=== PATIENT | female | born 1935 | race Caucasian/White ===

== ENCOUNTER 2023-03-16 05:37 | Inpatient (IN) | payer MEDICARE, SELFPAY ==
[2023-03-16] VITALS (15 sets, daily range): BP systolic 159–195; BP diastolic 71–103; PULSE 58–96; RESP 16–28; TEMP 36.3–36.8; O2SAT 90–94; BMI 28.5
--- NOTE | 2023-03-16 05:40 | CT_ITS ---
The [address] [address] Patient Name: SRIRAM LEBLANC MRN: [id number] date: 1935 Sex: F Assigned Patient Location: ER Current Patient Location: ER Accession/Order Number: [id number] Exam Date: 03/16/2023 05:40 Report Date: 03/16/2023 06:26 At the request of: LENNY LUONG Procedure: CT stroke head/brain wo con EXAMINATION: CT stroke head/brain wo con HISTORY: altered mental status COMPARISON: CT head 01/02/2023 TECHNIQUE: Axial CT images were obtained without IV contrast. Dose reduction techniques were achieved by using automated exposure control and/or adjustment of mA and/or kV according to patient size and/or use of iterative reconstruction technique. 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 No edema, hemorrhage, mass, acute infarction, or inappropriate atrophy. CSF SPACES: No hydrocephalus, subarachnoid hemorrhage, or mass. Appropriate for age. SKULL: No fracture, mass, or other significant visible lesion. SINUSES: Opacification of multiple left mastoid air cells, unchanged. Paranasal sinuses are clear. ORBITS: No appreciable abnormality on the limited views. OTHER: Negative CT/CT stroke head/brain wo con IMPRESSION: 1. No intracranial hemorrhage or appreciable acute abnormality. 2. Stable chronic age-related changes. 3. Stable mucosal thickening versus fluid within mastoid air cells. Findings discussed with Dr. Luong via telephone at 6:25 AM. Electronically authenticated by: VINI PEREZ Date: 03/16/2023 06:26
--- NOTE | 2023-03-16 05:44 | ED.GENADUL1 ---
HPI - General Adult General Chief complaint: Neuro Symptoms/Deficit Stated complaint: ALTERED MENTAL STATUS Time Seen by Provider: 03/16/23 05:44 History of Present Illness HPI narrative: pt brought into the emergency department with the complaint of mental status changes. The patient's blood sugar was normal. EMS found the patient without any oxygen on. She is normally on 4 L nasal cannula. After they placed oxygen back on the patient she still remained confused and only oriented to self. Daughter states her last known well was yesterday at 8 PM. This morning she found her sitting down on a chair thinking that she was sitting on the commode. Patient is unable to provide a history and the daughter is a poor historian she is also not available at this time. EMS was not able to get a good history from the daughter. They deny any signs of trauma. Related Data Home Medications Medication Instructions Recorded Confirmed amlodipine 10 mg tablet 2.5 mg PO QDAY 03/16/23 03/16/23 calcium carbonate 600 mg calcium 600 mg PO DAILY 03/16/23 03/16/23 (1,500 mg) tablet (Calcium) cyanocobalamin (vitamin B-12) 1,000 mcg PO QAM 03/16/23 03/16/23 1,000 mcg tablet escitalopram oxalate 5 mg tablet 5 mg PO QDAY 03/16/23 03/16/23 ferrous sulfate 325 mg (65 mg 325 mg PO QDAY 03/16/23 03/16/23 iron) tablet (FeroSul) lisinopril 10 mg tablet 10 mg PO QDAY 03/16/23 03/16/23 metoprolol tartrate 25 mg tablet 25 mg PO Q12H 03/16/23 03/16/23 simvastatin 20 mg tablet 20 mg PO QPM 03/16/23 03/16/23 Allergies Allergy/AdvReac Type Severity Reaction Status Date / Time Sulfa (Sulfonamide Allergy Intermediate Confusion Verified 03/16/23 06:45 Antibiotics) Review of Systems ROS Status of ROS 10 or more systems reviewed and unremarkable except as noted in history and below [facility] Medical History (Updated 03/16/23 @ 21:45 by Kelsey Luong MD) Surgical History Family History Mother Family history of cancer Sister Family history of cancer Family history of hypertension Brother Family history of myocardial infarction Father Family history of cancer Social History Within the past year, how often did you have a drink containing alcohol: never Score interpretation: A score less than 3 is consistent with normal alcohol consumption. Smoking status: Former smoker Non-prescribed substance use: denies use Previous occupational history: Retired Highest level of school completed/degree received: 10th grade Little interest or pleasure in doing things: several days Feeling down, depressed, or hopeless: more than half the days Feel stressed/tense/nervous/anxious/difficulty sleeping: to some extent Life stressors: other Life stressor details: recent hip fracture Do you think of yourself as: straight/heterosexual Gender Identity: female Exam Narrative Exam Narrative: Nurses notes and vital signs reviewed and patient is hypoxic.93 percent on 4 L nasal cannula General: Elderly, frail, chronically ill and in no apparent distress. Skin: Warm, dry, mild pallor noted. No Rash Head: Normocephalic, atraumatic. Neck: Supple, non-tender. Eye: Pupils are equal, round and EOMI. No scleral icterus. Ears, Nose, Mouth, and Throat: TM clear, no posterior oropharynx erythema or nasal mucosal hypertrophy, uvula is mid-line Oral mucosa is dry Cardiovascular: Regular Rate and Rhythm without murmur, gallop or rub. Respiratory: No accessory muscle use or respiratory distress. Lungs Occasional rhonchi bilateral Chest Wall: no tenderness Back: No midline thoracic or lumbar vertebral tenderness. No CVA tenderness Musculoskeletal: normal ROM, no calf or popliteal tenderness, +1 Bilateral lower extremity edema/swelling GI: Abdomen is soft, non-distended. Normal bowel sounds. No masses appreciated. No tenderness to palpation. No rebound, guarding, or rigidity noted. Neurological: A&O x1. No cranial nerve dysfunction observed. Moves all extremities. follows commands Psychiatric: Cooperative Constitutional Vital Signs, click to edit/add: Last Vital Signs Temp 98.2 F 03/16/23 14:26 Pulse 58 L 03/16/23 14:26 Resp 16 03/16/23 14:26 BP 161/71 H 03/16/23 14:26 Pulse Ox 94 L 03/16/23 20:11 O2 Del Method Nasal Cannula 03/16/23 20:11 O2 Flow Rate 2 03/16/23 20:11 Course Vital Signs Vital signs: Vital Signs Pulse Rate 96 H 03/16/23 05:51 Respiratory Rate 22 03/16/23 05:51 Blood Pressure 161/103 H 03/16/23 05:51 Pulse Oximetry 93 L 03/16/23 05:51 Temperature 98.2 F 03/16/23 14:26 Pulse Rate 58 L 03/16/23 14:26 Respiratory Rate 16 03/16/23 14:26 Blood Pressure 161/71 H 03/16/23 14:26 Pulse Oximetry 94 L 03/16/23 20:11 Oxygen Delivery Method Nasal Cannula 03/16/23 20:11 Oxygen Delivery Flow Rate 2 03/16/23 20:11 Medical Decision Making MDM Narrative Medical decision making narrative: CT scan of the brain stroke protocol was done and is pending. Labs studies were ordered and a chest x-ray. Patient is being worked up for a CVA, and sepsis. At the time of this dictation all labs and radiologic studies are pending. Patient was given IV fluids, started on antibiotics. She was pancultured. Patient was discussed with Dr. urbina for admission. Medical Records Medical records reviewed: Yes I reviewed the patient's medical records Lab Data Lab results reviewed: Yes I reviewed the patient's lab results Labs: Lab Results 03/16/23 03/16/23 03/16/23 Range/Units 05:54 05:58 06:05 WBC 13.8 H (4.0-11.0) 10^3/uL RBC 5.08 (4.20-5.40) 10^6/uL Hgb 14.6 (12.0-16.0) g/dL Hct 45.4 (36.0-48.0) % MCV 89.4 (81.0-99.0) fL MCH 28.7 (26.7-34.0) pg MCHC 32.2 (29.9-35.2) g/dL RDW 14.2 (11.0-15.0) % Plt Count 260 (150-450) 10^3/uL MPV 9.4 L (9.5-13.5) fL Seg Neuts % (Manual) 78.0 Lymphocytes % (Manual) 15.0 L (20.5-60.0) % Monocytes % (Manual) 5.0 (1.7-12.0) % Eosinophils % (Manual) 2.0 (0.9-7.0) % Basophils % (Manual) 0.0 L (0.2-2.0) % Neutrophils # (Manual) 10.76 H (1.4-6.5) 10^3/uL Lymphocytes # (Manual) 2.07 (1.20-3.80) 10^3/uL Monocytes # (Manual) 0.69 (0.30-0.80) 10^3/uL Eosinophils # (Manual) 0.27 (0.00-0.70) 10^3/uL Basophils # (Manual) 0.00 (0.00-0.10) 10^3/uL Toxic Granulation 2+ PT 10.3 (9.0-11.6) sec INR 0.97 APTT 20.9 L (22.3-36.2) sec Puncture Site ABG pH (7.350-7.450) ABG pCO2 (35.0-45.0) mmHg ABG pO2 (80.0-100.0) mmHg ABG HCO3 (22.0-26.0) mmol/L ABG O2 Saturation % ABG Base Excess (-2.0-2.0) mmol/L Mike Test (POSITIVE) O2 Liters/Min Sodium 135 L (136-145) mmol/L Potassium 3.5 (3.5-5.1) mmol/L Chloride 100 (98-107) mmol/L Carbon Dioxide 26.7 (21.0-32.0) mmol/L Anion Gap 11.8 BUN 13.0 (7.0-18.0) mg/dL Creatinine 0.80 (0.55-1.02) mg/dL Est GFR ( Amer) >60 (>=60) Est GFR (Non-Af Amer) >60 (>=60) BUN/Creatinine Ratio 16.2 Glucose 163 H (74-106) mg/dL Lactate 3.1 H* (0.4-2.0) mmol/L Calcium 9.0 (8.5-10.1) mg/dL Total Bilirubin 0.9 (0.2-1.0) mg/dL AST 16 (15-37) U/L ALT 14 (14-59) U/L Alkaline Phosphatase 89 (46-116) U/L Ammonia 20 (11-32) umol/L Troponin I High Sens 14.8 (4.0-51.3) pg/mL NT-Pro-B Natriuret Pep 1107.0 (<=1800.0) pg/mL Total Protein 6.7 (6.4-8.2) g/dL Albumin 3.6 (3.4-5.0) g/dL Globulin 3.1 g/dL Albumin/Globulin Ratio 1.2 Urine Color Lt. yellow (YELLOW) Urine Clarity Sl cloudy (CLEAR) Urine pH 7.0 (5.0-9.0) Ur Specific [place] 1.015 (1.005-1.025) Urine Protein 100 A (NEG/TRACE) mg/dL Urine Glucose (UA) Negative (NEGATIVE) mg/dL Urine Ketones Negative (NEGATIVE) mg/dL Urine Occult Blood Small A (NEGATIVE) Urine Nitrite Negative (NEGATIVE) Urine Bilirubin Negative (NEGATIVE) Urine Urobilinogen 0.2 (0.2-1.0) EU/dL Ur Leukocyte Esterase Negative (NEGATIVE) Urine RBC 5-10 A (0-2) #/HPF Urine WBC 0-2 A (NONE SEEN) #/HPF Ur Squamous Epith Cells Rare (NONE/RARE) #/LPF Urine Crystals None seen (None Seen) #/HPF Urine Bacteria Moderate A (NONE SEEN) #/HPF Urine Casts None seen (NONE SEEN) #/LPF Urine Mucus None seen (NONE SEEN) Ur Culture Indicated? Yes Mark H. influenza (PCR) Not detected (NOT DETECTE) Urine Opiates Screen Negative (NEGATIVE) Ur Buprenorphine Scrn Negative (NEGATIVE) Ur Oxycodone Screen Negative (NEGATIVE) Urine Methadone Screen Negative (NEGATIVE) Ur Propoxyphene Screen Negative (NEGATIVE) Ur Barbiturates Screen Negative (NEGATIVE) U Tricyclic Antidepress Negative (NEGATIVE) Ur Phencyclidine Scrn Negative (NEGATIVE) Ur Amphetamines Screen Negative (NEGATIVE) U Methamphetamines Scrn Negative (NEGATIVE) U Benzodiazepines Scrn Negative (NEGATIVE) Urine Cocaine Screen Negative (NEGATIVE) U Cannabinoids Screen Negative (NEGATIVE) A.calcoaceticus-baumannii cmplx PCR Not detected (NOT DETECTE) Bacteroides fragilis Not detected (NOT DETECTE) Lucinda albicans (PCR) Not detected (NOT DETECTE) Lucinda auris (PCR) Not detected (NOT DETECTE) C. glabrata (PCR) Not detected (NOT DETECTE) C. krusei (PCR) Not detected (NOT DETECTE) C. parapsilosis (PCR) Not detected (NOT DETECTE) C. tropicalis (PCR) Not detected (NOT DETECTE) C. neoform/gattii (PCR) Not detected (NOT DETECTE) Enterobacterales (PCR) Not detected (NOT DETECTE) E. cloacae complex PCR Not detected (NOT DETECTE) Enterococc faecalis PCR Not detected (NOT DETECTE) Enterococc faecium PCR Not detected (NOT DETECTE) E. coli (PCR) Not detected (NOT DETECTE) Klebsiella aerogenes (PCR) Not detected (NOT DETECTE) Klebsiella oxytoca PCR Not detected (NOT DETECTE) K. pneumoniae group (PCR) Not detected (NOT DETECTE) List. monocytogenes PCR Not detected (NOT DETECTE) N. meningitidis (PCR) Not detected (NOT DETECTE) Proteus spp. (copies/mL) Not detected (NOT DETECTE) Salmonella spp. (PCR) Not detected (NOT DETECTE) Serratia marcescens PCR Not detected (NOT DETECTE) Staphylococcus sp PCR Not detected (NOT DETECTE) Staph aureus (PCR) Not detected (NOT DETECTE) mecA/C & MREJ Resist Gene Not applicable (NOT DETECTE) mecA/C-Methicil Resis Gene Not applicable (NOT DETECTE) mcr-1 Colistin Res Gene PCR Not applicable (NOT DETECTE) Staph epidermidis (PCR) Not detected (NOT DETECTE) Staph lugdunensis (TEM-PCR) Not detected (NOT DETECTE) S. maltophilia (PCR) Not detected (NOT DETECTE) Streptococcus sp PCR Not detected (NOT DETECTE) Strep agalactiae (PCR) Not detected (NOT DETECTE) Strep pneumoniae (PCR) Not detected (NOT DETECTE) S. pyogenes (PCR) Not detected (NOT DETECTE) P. aeruginosa (PCR) Not detected (NOT DETECTE) Tari/B-Vanco Res Genes Not applicable (NOT DETECTE) blaIMP Car res Gene PCR Not applicable (NOT DETECTE) KPC (blaKPC) Detect PCR Not applicable (NOT DETECTE) NDM (blaNDM) Detect PCR Not applicable (NOT DETECTE) OXA-48 Carbapenem Resis Gene (PCR) Not applicable (NOT DETECTE) blaVIM Car Res Gene PCR Not applicable (NOT DETECTE) CTX-M ESBL (PCR) Not applicable (NOT DETECTE) 03/16/23 Range/Units 06:40 WBC (4.0-11.0) 10^3/uL RBC (4.20-5.40) 10^6/uL Hgb (12.0-16.0) g/dL Hct (36.0-48.0) % MCV (81.0-99.0) fL MCH (26.7-34.0) pg MCHC (29.9-35.2) g/dL RDW (11.0-15.0) % Plt Count (150-450) 10^3/uL MPV (9.5-13.5) fL Seg Neuts % (Manual) Lymphocytes % (Manual) (20.5-60.0) % Monocytes % (Manual) (1.7-12.0) % Eosinophils % (Manual) (0.9-7.0) % Basophils % (Manual) (0.2-2.0) % Neutrophils # (Manual) (1.4-6.5) 10^3/uL Lymphocytes # (Manual) (1.20-3.80) 10^3/uL Monocytes # (Manual) (0.30-0.80) 10^3/uL Eosinophils # (Manual) (0.00-0.70) 10^3/uL Basophils # (Manual) (0.00-0.10) 10^3/uL Toxic Granulation PT (9.0-11.6) sec INR APTT (22.3-36.2) sec Puncture Site Rr ABG pH 7.420 (7.350-7.450) ABG pCO2 43.9 (35.0-45.0) mmHg ABG pO2 44.6 L (80.0-100.0) mmHg ABG HCO3 28.4 H (22.0-26.0) mmol/L ABG O2 Saturation 80.6 % ABG Base Excess 3.9 H (-2.0-2.0) mmol/L Mike Test Positive (POSITIVE) O2 Liters/Min 3 Sodium (136-145) mmol/L Potassium (3.5-5.1) mmol/L Chloride (98-107) mmol/L Carbon Dioxide (21.0-32.0) mmol/L Anion Gap BUN (7.0-18.0) mg/dL Creatinine (0.55-1.02) mg/dL Est GFR ( Amer) (>=60) Est GFR (Non-Af Amer) (>=60) BUN/Creatinine Ratio Glucose (74-106) mg/dL Lactate (0.4-2.0) mmol/L Calcium (8.5-10.1) mg/dL Total Bilirubin (0.2-1.0) mg/dL AST (15-37) U/L ALT (14-59) U/L Alkaline Phosphatase (46-116) U/L Ammonia (11-32) umol/L Troponin I High Sens (4.0-51.3) pg/mL NT-Pro-B Natriuret Pep (<=1800.0) pg/mL Total Protein (6.4-8.2) g/dL Albumin (3.4-5.0) g/dL Globulin g/dL Albumin/Globulin Ratio Urine Color (YELLOW) Urine Clarity (CLEAR) Urine pH (5.0-9.0) Ur Specific [place] (1.005-1.025) Urine Protein (NEG/TRACE) mg/dL Urine Glucose (UA) (NEGATIVE) mg/dL Urine Ketones (NEGATIVE) mg/dL Urine Occult Blood (NEGATIVE) Urine Nitrite (NEGATIVE) Urine Bilirubin (NEGATIVE) Urine Urobilinogen (0.2-1.0) EU/dL Ur Leukocyte Esterase (NEGATIVE) Urine RBC (0-2) #/HPF Urine WBC (NONE SEEN) #/HPF Ur Squamous Epith Cells (NONE/RARE) #/LPF Urine Crystals (None Seen) #/HPF Urine Bacteria (NONE SEEN) #/HPF Urine Casts (NONE SEEN) #/LPF Urine Mucus (NONE SEEN) Ur Culture Indicated? Mark H. influenza (PCR) (NOT DETECTE) Urine Opiates Screen (NEGATIVE) Ur Buprenorphine Scrn (NEGATIVE) Ur Oxycodone Screen (NEGATIVE) Urine Methadone Screen (NEGATIVE) Ur Propoxyphene Screen (NEGATIVE) Ur Barbiturates Screen (NEGATIVE) U Tricyclic Antidepress (NEGATIVE) Ur Phencyclidine Scrn (NEGATIVE) Ur Amphetamines Screen (NEGATIVE) U Methamphetamines Scrn (NEGATIVE) U Benzodiazepines Scrn (NEGATIVE) Urine Cocaine Screen (NEGATIVE) U Cannabinoids Screen (NEGATIVE) A.calcoaceticus-baumannii cmplx PCR (NOT DETECTE) Bacteroides fragilis (NOT DETECTE) Lucinda albicans (PCR) (NOT DETECTE) Lucinda auris (PCR) (NOT DETECTE) C. glabrata (PCR) (NOT DETECTE) C. krusei (PCR) (NOT DETECTE) C. parapsilosis (PCR) (NOT DETECTE) C. tropicalis (PCR) (NOT DETECTE) C. neoform/gattii (PCR) (NOT DETECTE) Enterobacterales (PCR) (NOT DETECTE) E. cloacae complex PCR (NOT DETECTE) Enterococc faecalis PCR (NOT DETECTE) Enterococc faecium PCR (NOT DETECTE) E. coli (PCR) (NOT DETECTE) Klebsiella aerogenes (PCR) (NOT DETECTE) Klebsiella oxytoca PCR (NOT DETECTE) K. pneumoniae group (PCR) (NOT DETECTE) List. monocytogenes PCR (NOT DETECTE) N. meningitidis (PCR) (NOT DETECTE) Proteus spp. (copies/mL) (NOT DETECTE) Salmonella spp. (PCR) (NOT DETECTE) Serratia marcescens PCR (NOT DETECTE) Staphylococcus sp PCR (NOT DETECTE) Staph aureus (PCR) (NOT DETECTE) mecA/C & MREJ Resist Gene (NOT DETECTE) mecA/C-Methicil Resis Gene (NOT DETECTE) mcr-1 Colistin Res Gene PCR (NOT DETECTE) Staph epidermidis (PCR) (NOT DETECTE) Staph lugdunensis (TEM-PCR) (NOT DETECTE) S. maltophilia (PCR) (NOT DETECTE) Streptococcus sp PCR (NOT DETECTE) Strep agalactiae (PCR) (NOT DETECTE) Strep pneumoniae (PCR) (NOT DETECTE) S. pyogenes (PCR) (NOT DETECTE) P. aeruginosa (PCR) (NOT DETECTE) Tari/B-Vanco Res Genes (NOT DETECTE) blaIMP Car res Gene PCR (NOT DETECTE) KPC (blaKPC) Detect PCR (NOT DETECTE) NDM (blaNDM) Detect PCR (NOT DETECTE) OXA-48 Carbapenem Resis Gene (PCR) (NOT DETECTE) blaVIM Car Res Gene PCR (NOT DETECTE) CTX-M ESBL (PCR) (NOT DETECTE) ECG Data Attestation: I personally reviewed and interpreted this ECG as follows: Discharge Plan Discharge Chief Complaint: Neuro Symptoms/Deficit Clinical Impression: Altered mental status, Sepsis, Pneumonia Patient Disposition: Admitted As Inpatient Condition: Good
--- NOTE | 2023-03-16 05:45 | ECG_ITS ---
The [facility] Test Date: 2023-03-16 Pat Name: SRIRAM LEBLANC Department: Room: - Gender: Female [employer] Food [employer]: : 1935 Requested By: [id number] Order Number: [id number] Reading MD: LALO PRICE Measurements Intervals [place] Rate: 82 P: 41 IN: 202 QRS: 66 QRSD: 82 T: 53 QT: 394 QTc: 433 Interpretive Statements 1100 Sinus rhythm 9110 normal ECG No previous ECG available for comparison Electronically Signed On 03-16-2023 7:21:37 EDT by LALO PRICE
--- NOTE | 2023-03-16 06:13 | XR_ITS ---
The [place] [id number] Patient Name: SRIRAM LEBLANC MRN: [id number] date: 1935 Sex: F Assigned Patient Location: ED.MAIN Current Patient Location: ED.MAIN Accession/Order Number: [id number] Exam Date: 03/16/2023 06:13 Report Date: 03/16/2023 07:19 At the request of: LENNY LAWSON Procedure: XR chest 1V EXAMINATION: XR chest 1V HISTORY: mental status changes COMPARISON: 01/02/2023 TECHNIQUE: AP portable erect FINDINGS: LUNGS: Mild left basilar infiltrate, improved VASCULATURE: Moderately increased pulmonary vasculature, stable PLEURA: No pneumothorax, effusion, or pleural thickening. CARDIAC: Mild stable cardiomegaly MEDIASTINUM: No visible mass or adenopathy. Aortic atherosclerosis BONES: No fracture or visible bone lesion. OTHER: Negative. XR/XR chest 1V IMPRESSION: Stable pulmonary vascular congestion Improved aeration of the left lung base mild left basilar infiltrate, improved Electronically authenticated by: NADINE WHITNEY Date: 03/16/2023 07:19
[2023-03-16 06:24] LABS: Hematocrit 45.4 % (36.0-48.0); Hemoglobin 14.6 g/dL (12.0-16.0); Mean Corpuscular HGB Conc 32.2 g/dL (29.9-35.2); Mean Corpuscular Hemoglobin 28.7 pg (26.7-34.0); Mean Corpuscular Volume 89.4 fL (81.0-99.0); Mean Platelet Volume 9.4 fL (9.5-13.5); Platelet Count 260 10^3/uL (150-450); Red Blood Count 5.08 10^6/uL (4.20-5.40); Red Cell Distribution Width 14.2 % (11.0-15.0); White Blood Count 13.8 10^3/uL (4.0-11.0)
[2023-03-16 06:41] LABS: INR 0.97; Partial Thromboplastin Time 20.9 sec (22.3-36.2); Prothrombin Time 10.3 sec (9.0-11.6)
[2023-03-16 06:42] LABS: Amphetamine Screen Urine NEGATIVE (NEGATIVE); Barbiturates Screen Urine NEGATIVE (NEGATIVE); Benzodiazepines Screen Urine NEGATIVE (NEGATIVE); Buprenorphine Screen Urine NEGATIVE (NEGATIVE); Cannabinoid Screen Urine NEGATIVE (NEGATIVE); Cocaine Screen Urine NEGATIVE (NEGATIVE); Methadone Screen Urine NEGATIVE (NEGATIVE); Methamphetamines Screen Urine NEGATIVE (NEGATIVE); Opiate Screen Urine NEGATIVE (NEGATIVE); Oxycodone Screen Urine NEGATIVE (NEGATIVE); Phencyclidine Screen Urine NEGATIVE (NEGATIVE); Tricyclic Antidepressant Urine NEGATIVE (NEGATIVE)
[2023-03-16 06:42] LABS: Ammonia 20 umol/L (11-32)
[2023-03-16 06:46] LABS: ABG PCO2 43.9 mmHg (35.0-45.0); Allen Test POSITIVE (POSITIVE); Base Excess ABG 3.9 mmol/L (-2.0-2.0); HCO3 ABG 28.4 mmol/L (22.0-26.0); Liters per Minute 3; O2 Mode NC; Oxygen Saturation ABG 80.6 %; PO2 ABG 44.6 mmHg (80.0-100.0); Puncture Site RR
[2023-03-16 06:49] LABS: Alanine Aminotransferase 14 U/L (14-59); Albumin Globulin Ratio 1.2; Albumin Level 3.6 g/dL (3.4-5.0); Alkaline Phosphatase 89 U/L (46-116); Anion Gap 11.8; Aspartate Amino Transferase 16 U/L (15-37); BUN Creatinine Ratio 16.2; Bilirubin Total 0.9 mg/dL (0.2-1.0); Carbon Dioxide 26.7 mmol/L (21.0-32.0); Chloride 100 mmol/L (98-107); Estimated GFR (African America >60 (>=60); Estimated GFR (Non-African Ame >60 (>=60); Globulin 3.1 g/dL; Glucose 163 mg/dL (74-106); Potassium 3.5 mmol/L (3.5-5.1); Sodium 135 mmol/L (136-145); Total Protein 6.7 g/dL (6.4-8.2); Troponin I High Sensitivity 14.8 pg/mL (4.0-51.3)
[2023-03-16 06:53] LABS: Lactate/Lactic Acid 3.1 mmol/L (0.4-2.0)
[2023-03-16 07:12] LABS: Bilirubin Urine NEGATIVE (NEGATIVE); Blood Urine SMALL (NEGATIVE); Clarity Urine SL CLOUDY (CLEAR); Color Urine LT. YELLOW (YELLOW); Glucose Urine UA NEGATIVE (NEGATIVE); Ketones Urine NEGATIVE (NEGATIVE); Leukocyte Esterase Urine NEGATIVE (NEGATIVE); Nitrite Urine NEGATIVE (NEGATIVE); Protein Urine 100 mg/dL (NEG/TRACE); Specific Gravity Urine 1.015 (1.005-1.025); Urobilinogen Urine 0.2 EU/dL (0.2-1.0)
[2023-03-16 07:15] LABS: Urine Microscopic Indicated YES
[2023-03-16 07:22] LABS: Bacteria Urine MODERATE #/HPF (NONE SEEN); Mucus Urine NONE SEEN (NONE SEEN); Squamous Epithelial Cell Urine RARE #/LPF (NONE/RARE); WBC Urine 0-2 #/HPF (NONE SEEN)
[2023-03-16 07:23] LABS: Cast Seen? NONE SEEN #/LPF (NONE SEEN); Crystals Seen? None Seen #/HPF (None Seen); Urine Culture Indicated YES
[2023-03-16] MEDS: 0.9 % SODIUM CHLORIDE 1,000 ML 999 ML IV (07:24)
[2023-03-16 07:42] LABS: Eosinophils Absolute Manual 0.27 10^3/uL (0.00-0.70); Lymphocytes Absolute Manual 2.07 10^3/uL (1.20-3.80); Monocytes Absolute Manual 0.69 10^3/uL (0.30-0.80); Segmented Neut Absolute Manual 10.76 10^3/uL (1.4-6.5)
[2023-03-16 07:43] LABS: Toxic Granulation 2+
[2023-03-16] MEDS: CEFTRIAXONE 1,000 MG in 0.9 % SODIUM CHLORIDE 50 ML 100 MG IV (07:46)
--- NOTE | 2023-03-16 10:14 | CA_ITS ---
Patient: SRIRAM LEBLANC Exam Date: 03/16/2023 : 1935 Gender:F Ordering : RamónMando PERKINS . Admission #: [id number] Family : Order #: [id number] CLICK HERE TO VIEW EXAM ECHOCARDIOGRAM REPORT PROCEDURE: CA ECHO DOPPLER COMPLETE INDICATIONS: SOB COMPARISON: None. DESCRIPTION: COMPLETE ECHOCARDIOGRAM Real-time transthoracic echocardiography with 2D, M-mode, spectral and color flow Doppler performed. QUALITY: Technical quality was good. LEFT VENTRICLE: Normal chamber size. Moderate concentric left ventricular hypertrophy. Global left ventricular systolic function is normal. LV EF: Calculated left ventricular ejection fraction is 66% DIASTOLIC: Grade I diastolic dysfunction. ATRIAL SEPTUM: LEFT ATRIUM: Mild dilatation. RIGHT ATRIUM: Mild dilatation. RIGHT VENTRICLE: Normal chamber size. Normal right ventricular systolic function. TRICUSPID VALVE: Normal mobility and thickness. No stenosis with mild regurgitation. Moderate pulmonary hypertension. RVSP 51 mmHg MITRAL VALVE: Normal mobility and thickness. No evidence of mitral valve stenosis. Mild mitral annular calcification. Mild to moderate mitral regurgitation. AORTIC VALVE: Normal trileaflet appearance. No visible sclerosis. Normal leaflet mobility. No evidence of aortic valve stenosis. No aortic regurgitation. AORTIC ROOT: Normal diameter and appearance. PULMONIC VALVE: Normal thickness and mobility. No stenosis. Trivial regurgitation. PERICARDIUM: No evidence of pericardial effusion. IVC: Collapses with inspirations. Normal size. PLEURA: CONCLUSION: 1. Moderate concentric left ventricular hypertrophy with normal systolic function. LVEF is 65 to 70%. 2. Mild diastolic dysfunction. 3. Normal right ventricular size and systolic function. 4. Mild biatrial dilatation. 5. Mild to moderate mitral and mild tricuspid regurgitation. 6. Moderately elevated right-sided pressures. RVSP is 51 mmHg. Adult Echocardiography Procedure Report Left Ventricle LVEDD (3.7 - 5.6 cm): 4.78 cm LVESD (2.2 - 4.0 cm): 3.02 cm LVIVS thickness (0.6 - 1.2 cm): 1.44 cm LVPW thickness (0.5 - 1.0 cm): 1.26 cm LVOT Max Gradient: 4 mm[Hg] Peak Velocity (LVOT): 98.20 cm/s Mean Velocity (LVOT): 60.90 cm/s LVOT Diameter 2.10 cm Left Ventricular Ejection Fraction: 66 % Left Atrium LA Volume Index (2D A2C): 77738 mm3 Left Atrium Systolic Dimension: 3.90 cm Mitral Valve MV E to A Ratio: 0.60 Mitral Valve A-Wave Peak Velocity: 128.00 cm/s Mitral Valve E-Wave Peak Velocity: 72.40 cm/s Right Ventricle Aorta AO Root Diam: 3.20 cm Aortic Valve AoV Area (Peak Maxi): 1.57 cm2 AoV Area (VTI): 1.65 cm2 Peak Velocity(Antegrade Flow): 216.00 cm/s Peak Gradient(Antegrade Flow): 19 mm[Hg] Mean Velocity(Antegrade Flow): 139.00 cm/s Mean Gradient(Antegrade Flow): 9 mm[Hg] Velocity Time Integral: 44.90 cm Tricuspid Valve Peak Velocity (Regurgitant Flow): 347.00 cm/s Peak Velocity: 45.80 cm/s Pulmonic Valve Peak Velocity: 103.00 cm/s, 89.20 cm/s Peak Gradient: 4 mm[Hg] Right Atrium Dictated by: Jarvis Cole M.D. on 03/16/2023 at 19:21 Approved by: Jarvis Cole M.D. on 03/16/2023 at 19:25
[2023-03-16 10:54] LABS: ABG PCO2 41.1 mmHg (35.0-45.0); PO2 ABG 62.1 mmHg (80.0-100.0); pH ABG 7.449 (7.350-7.450)
[2023-03-16 10:55] LABS: Allen Test POSITIVE (POSITIVE); Base Excess ABG 4.5 mmol/L (-2.0-2.0); HCO3 ABG 28.5 mmol/L (22.0-26.0); Liters per Minute 2; O2 Mode NASAL CANNULA; Oxygen Saturation ABG 92.8 %
[2023-03-16 10:56] LABS: Puncture Site LEFT RADIAL
[2023-03-16 11:15] LABS: Ammonia 24 umol/L (11-32)
[2023-03-16 11:22] LABS: Lactate/Lactic Acid 1.2 mmol/L (0.4-2.0)
--- NOTE | 2023-03-16 11:46 | MR_ITS ---
The [address] [address] Patient Name: SRIRAM LEBLANC MRN: [id number] date: 1935 Sex: F Assigned Patient Location: MS Current Patient Location: MS Accession/Order Number: [id number] Exam Date: 03/16/2023 13:00 Report Date: 03/16/2023 15:21 At the request of: SHAIKH MADDIE Procedure: MR head/brain wo con EXAM: MR head/brain wo con HISTORY: Altered mental status COMPARISON: CT brain 03/16/2023, 11/07/2022. TECHNIQUE: MRI of the brain was performed without contrast. FINDINGS: Exam is distorted secondary to severe motion artifact. Findings are made within these confines. There is no restricted diffusion to suggest acute infarct. There is no midline shift, mass effect, or abnormal extraaxial fluid collections. The cortical sulci and ventricular system are within normal limits for age. There are a few small chronic lacunar infarcts in bilateral basal ganglia. Multiple scattered foci of T2/FLAIR signal abnormality are identified in the subcortical and periventricular white matter. These findings are nonspecific but likely reflect chronic microvascular ischemic changes. The major intracranial flow voids are visualized. The cerebellar tonsils are normal in position. The orbits are unremarkable. The paranasal sinuses are essentially clear. There is partial opacification of left mastoid air cells, unchanged when compared to CT brain study from 11/07/2022, accounting for technique differences. MR/MR head/brain wo con IMPRESSION: Within the limitation of motion artifacts, no acute intracranial abnormality identified. Remote lacunar infarcts in bilateral basal ganglia. Chronic microvascular ischemic and mild involutional changes. Chronic partial opacification of left mastoid air cells, unchanged when compared to CT brain study from 11/07/2022, accounting for technique differences. Electronically authenticated by: MANUEL DUMONT Date: 03/16/2023 15:21
--- NOTE | 2023-03-16 12:04 | CM.NOTE ---
Rounds made with Dr. Kenny. Discussed plan of care--control BP, check MRI brain and CT chest-- with daughter and son--both verbalize understanding. No plan for discharge today.
--- NOTE | 2023-03-16 14:09 | CT_ITS ---
[address] [address] Patient Name: SRIRAM LEBLANC MRN: [id number] date: 1935 Sex: F Assigned Patient Location: [place] Current Patient Location: [place] Accession/Order Number: [id number] Exam Date: 03/16/2023 13:55 Report Date: 03/16/2023 14:48 At the request of: SHAIKH MADDIE Procedure: CT chest wo con EXAMINATION: CT chest wo con HISTORY: sob , left lung base infiltrate COMPARISON: XR chest 03/16/2023, CTA chest 11/07/2022 TECHNIQUE: Multi-planar CT images were obtained without and/or with IV contrast as indicated by examination type. Axial, Coronal, and Sagittal images. Dose reduction techniques were achieved by using automated exposure control and/or adjustment of mA and/or kV according to patient size and/or use of iterative reconstruction technique. FINDINGS: LUNGS: Mild atelectasis versus infiltrates within posterior left lung base. Scattered calcified granulomas. Mild emphysematous changes. PLEURA: Small left pleural effusion. VASCULATURE: No abnormality. KENDY: Calcified and noncalcified left hilar lymph nodes. MEDIASTINUM: No mass or adenopathy. CARDIAC: No enlargement, pericardial thickening, or significant calcification. AORTA: No aneurysm or dissection. CHEST WALL: No mass or axillary adenopathy. BONES: No bone lesion or fracture. LIMITED ABDOMEN: Small hiatal hernia. Limited images of the upper abdomen. OTHER: Negative. CT/CT chest wo con IMPRESSION: 1. Small left pleural effusion and mild left basilar atelectasis versus infiltrates. 2. Mild left hilar lymphadenopathy, likely some reactive lymph nodes and others represent chronic granulomatous changes. Electronically authenticated by: VINI PEREZ Date: 03/16/2023 14:48
[2023-03-16] MEDS: FUROSEMIDE 40 MG/4 ML VIAL IVP (14:18)
[2023-03-16] MEDS: ESCITALOPRAM 10 MG TABLET 5 MG PO (14:19)
[2023-03-16] MEDS: AMLODIPINE BESYLATE 5 MG TABLET 10 MG PO (14:19)
[2023-03-16] MEDS: METOPROLOL TARTRATE 25 MG TABLET PO ×2 (14:19→21:35)
[2023-03-16] MEDS: LISINOPRIL 10 MG TABLET 20 MG PO (14:20)
[2023-03-16 19:36] LABS: A. calcoaceticus-baumannii Cpx NOT DETECTED (NOT DETECTE); Bacteroides fragilis NOT DETECTED (NOT DETECTE); Candida albicans NOT DETECTED (NOT DETECTE); Candida auris NOT DETECTED (NOT DETECTE); Candida glabrata NOT DETECTED (NOT DETECTE); Candida krusei NOT DETECTED (NOT DETECTE); Candida parapsilosis NOT DETECTED (NOT DETECTE); Candida tropicalis NOT DETECTED (NOT DETECTE); Cryptococcus neoformans/gattii NOT DETECTED (NOT DETECTE); Enterobacter cloacae complex NOT DETECTED (NOT DETECTE); Enterobacterales NOT DETECTED (NOT DETECTE); Enterococcus faecalis NOT DETECTED (NOT DETECTE); Enterococcus faecium NOT DETECTED (NOT DETECTE); Haemophilus influenzae NOT DETECTED (NOT DETECTE); Klebsiella aerogenes NOT DETECTED (NOT DETECTE); Klebsiella pneumoniae group NOT DETECTED (NOT DETECTE); Listeria monocytogenes NOT DETECTED (NOT DETECTE); Neisseria meningitidis NOT DETECTED (NOT DETECTE); Proteus spp. NOT DETECTED (NOT DETECTE); Pseudomonas aeruginosa NOT DETECTED (NOT DETECTE); Salmonella spp. NOT DETECTED (NOT DETECTE); Serratia marcescens NOT DETECTED (NOT DETECTE); Staphylococcus epidermidis NOT DETECTED (NOT DETECTE); Staphylococcus lugdunensis NOT DETECTED (NOT DETECTE); Staphylococcus spp. NOT DETECTED (NOT DETECTE); Stenotrophomonas maltophilia NOT DETECTED (NOT DETECTE); Streptococcus agalactiae NOT DETECTED (NOT DETECTE); Streptococcus pneumoniae NOT DETECTED (NOT DETECTE); Streptococcus pyogenes NOT DETECTED (NOT DETECTE); Streptococcus spp. NOT DETECTED (NOT DETECTE)
--- NOTE | 2023-03-16 20:02 | P.HP_ITS ---
H&P: HPI History of Present Illness Chief complaint: Change in mental status Narrative: 87 y o female with dementia, currently living at home with her daughter was brought in for acute change in mental status last night. Hx was obtained from patient's daughter as patient herself was confused and did not participate in clinical exam and hx. Patient was in her usual state of health and had not indicated/reported any symptoms/signs prior. There is no report of fever, cough, sob, nausea,vomiting, poor appetite, urinary complaints, change in bowel habits. According to the daughter, she woke up and found patient with her pants down on a couch as if she had confused the couch with commode and had relieved herself on the couch. She got her up and tried to help her walk and found that she was extremely confused, could barely walk and her speech was incomprehensible. At baseline, patient can communicate but she is confused at baseline due to her dementia and sometimes her speech is not organized and relevant to the topic. She can ambulate using a walker and is dependent on her ADLs. She is also on O2 -2 L at baseline and had taken off her O2 and her pulse Ox was in 80s when ems arrived. Daughter is not sure how long she was sitting on the couch like that for and also, not sure about how long did she remain hypoxic. On arrival, patient was also noted to have extremely high blood pressure which according to the daughter is not usually an issue. I was unable to interact/communicate with the patient. She was awake but kept repeating Yes and was also not co operative with physical exam Review of Systems ROS Status of ROS unobtainable due to mental status [facility] Medical History (Updated 03/16/23 @ 20:29 by Shaikh Efraín MD) Surgical History Family History Mother Family history of cancer Sister Family history of cancer Family history of hypertension Brother Family history of myocardial infarction Father Family history of cancer Social History Within the past year, how often did you have a drink containing alcohol: never Score interpretation: A score less than 3 is consistent with normal alcohol consumption. Smoking status: Former smoker Non-prescribed substance use: denies use Previous occupational history: Retired Highest level of school completed/degree received: 10th grade Little interest or pleasure in doing things: several days Feeling down, depressed, or hopeless: more than half the days Feel stressed/tense/nervous/anxious/difficulty sleeping: to some extent Life stressors: other Life stressor details: recent hip fracture Do you think of yourself as: straight/heterosexual Gender Identity: female Meds Home Medications and Allergies Home Medications Medication Instructions Recorded Confirmed Type amlodipine 10 mg tablet 2.5 mg PO QDAY 03/16/23 03/16/23 History calcium carbonate 600 mg calcium 600 mg PO DAILY 03/16/23 03/16/23 History (1,500 mg) tablet (Calcium) cyanocobalamin (vitamin B-12) 1,000 mcg PO QAM 03/16/23 03/16/23 History 1,000 mcg tablet escitalopram oxalate 5 mg tablet 5 mg PO QDAY 03/16/23 03/16/23 History ferrous sulfate 325 mg (65 mg 325 mg PO QDAY 03/16/23 03/16/23 History iron) tablet (FeroSul) lisinopril 10 mg tablet 10 mg PO QDAY 03/16/23 03/16/23 History metoprolol tartrate 25 mg tablet 25 mg PO Q12H 03/16/23 03/16/23 History simvastatin 20 mg tablet 20 mg PO QPM 03/16/23 03/16/23 History Allergies Allergy/AdvReac Type Severity Reaction Status Date / Time Sulfa (Sulfonamide Allergy Intermediate Confusion Verified 03/16/23 06:45 Antibiotics) Exam Constitutional Vital Signs, click to edit/add: Last Vital Signs Temp 98.2 F 03/16/23 14:26 Pulse 58 L 03/16/23 14:26 Resp 16 03/16/23 14:26 BP 161/71 H 03/16/23 14:26 Pulse Ox 93 L 03/16/23 14:26 O2 Del Method Nasal Cannula 03/16/23 11:15 O2 Flow Rate 2 03/16/23 11:15 Documenting provider has reviewed patient's vital signs: yes Common normals: no apparent distress General appearance: frail appearing Orientation/consciousness: Yes confused HENMT Common normals: normocephalic and head/scalp atraumatic Eye Common normals: conjunctivae normal and no scleral icterus Respiratory Common normals: normal respiratory effort, no use of accessory muscles and clear to auscultation bilaterally GI Common normals: Normal to inspection, nondistended, normoactive bowel sounds present, soft to palpation, non-tender and no hepatosplenomegaly Extremity Common normals: normal to inspection and full ROM Neuro Lanie Coma Scale: document GCS findings [place] coma scale eye opening: Spontaneous [place] coma scale verbal response: Confused [place] coma scale mo tor response: Localising [place] coma scale total score: 13 Common normals: moves all extremities Sensorium/orientation: awake Speech: abnormal speech Psych Attitude: calm Speech: incoherent Thought process: confused Results Labs Labs: Short CBC 03/16/23 Range/Units 05:58 WBC 13.8 H (4.0-11.0) 10^3/uL Hgb 14.6 (12.0-16.0) g/dL Hct 45.4 (36.0-48.0) % Plt Count 260 (150-450) 10^3/uL BMP 03/16/23 05:58 Sodium 135 L Potassium 3.5 Chloride 100 Carbon Dioxide 26.7 BUN 13.0 Creatinine 0.80 Glucose 163 H Calcium 9.0 Liver Function 03/16/23 Range/Units 05:58 Total Bilirubin 0.9 (0.2-1.0) mg/dL AST 16 (15-37) U/L ALT 14 (14-59) U/L Alkaline Phosphatase 89 (46-116) U/L Albumin 3.6 (3.4-5.0) g/dL Urine 03/16/23 Range/Units 06:05 Urine Color Lt. yellow (YELLOW) Urine Clarity Sl cloudy (CLEAR) Urine pH 7.0 (5.0-9.0) Ur Specific [place] 1.015 (1.005-1.025) Urine Protein 100 A (NEG/TRACE) mg/dL Urine Glucose (UA) Negative (NEGATIVE) mg/dL ABG ABG results: 03/16/23 03/16/23 06:40 10:45 ABG pH 7.420 7.449 ABG pCO2 43.9 41.1 ABG pO2 44.6 L 62.1 L ABG HCO3 28.4 H 28.5 H ABG O2 Saturation 80.6 92.8 ABG Base Excess 3.9 H 4.5 H Assessment and Plan Assessment and Plan (1) Metabolic encephalopathy: Assessment and Plan: Multifactorial - UTI with prolonged hypoxia and possibly PNA. CT head no acute pathology. 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 Monitor and treat underlying cause as outline below. (2) Hypertensive emergency: Assessment and Plan: SBP > 190/DBP >100 Increased home dose of amlodipine, lisinopril. Hydralazine prn Monitor BP closely. No stroke on CTH and MRI. (3) Acute on chronic diastolic (congestive) heart failure: Assessment and Plan: Volume overload on CXR and CT chest. One dose of IV lasix. Likely exacerbated by poorly controlled HTN Monitor and closely f/u (4) Acute and chronic respiratory failure with hypoxia: Assessment and Plan: On 2 l O2. She was prescribed O2 after she developed pneumothorax from rib fx. On 2 L O2. Presented with hpyoxemia, and now on 4 L 02. Sec to volume overload and possibly PNA (5) UTI (urinary tract infection): Assessment and Plan: large bacteria in UA. On rocephin for presumed UTI F/u urine cx. (6) Sepsis: Assessment and Plan: WBC >13, HR > 90, rr> 20 with metabolic encephalopathy and resp failure along with lactic acidosis. Stable hemodynamics now. Still confused. (7) Pneumonia: Assessment and Plan: Bibasilar infiltrates vs Atelectasis on CT chest No report of cough/fever or resp symptoms but presented with worsening hpyoxia. Will treat for CAP - C/w IV rocephin. Qualifiers: Pneumonia type: due to unspecified organism Laterality: bilateral Lung location: lower lobe of lung Qualified Code(s): J18.9 - Pneumonia, unspecified organism (8) Lactic acidosis: Assessment and Plan: Due to hypoxia and sepsis (9) Dementia: Assessment and Plan: AAOX 2-3 at baseline. Likely vascular dementia and possibly Alzheimer Dependent on her daughter for ADLs. Qualifiers: Dementia type: vascular dementia Dementia severity: moderate Dementia behavioral or psychological symptom: with mood disturbance Qualified Code(s): F01.B3 - Vascular dementia, moderate, with mood disturbance (10) Depression: Assessment and Plan: On Lexapro C/w same (11) Hyperlipidemia: Assessment and Plan: C/w simvastatin (12) Hypertension: Assessment and Plan: P/w poorly controlled HTN. Better now with changes to her home regimen.
[2023-03-16] MEDS: ATORVASTATIN CALCIUM 10 MG TABLET PO (21:35)
[2023-03-16] MEDS: QUETIAPINE FUMARATE 25 MG TABLET PO (22:16)
[2023-03-17] VITALS (7 sets, daily range): BP systolic 117–139; BP diastolic 66–73; PULSE 61–79; RESP 16–20; TEMP 36.6–37.3; O2SAT 91–96
[2023-03-17 05:07] LABS: Basophils Percent Auto 0.3 % (0.2-2.0); Hematocrit 39.6 % (36.0-48.0); Hemoglobin 12.9 g/dL (12.0-16.0); Immature Granulocytes Abs Auto 0.04 10^3/uL (0.00-0.03); Immature Granulocytes Pct Auto 0.3 % (0.0-0.5); Lymphocytes Absolute Auto 3.2 10^3/uL (1.2-3.8); Lymphocytes Percent Auto 23.1 % (20.5-60.0); Mean Corpuscular HGB Conc 32.6 g/dL (29.9-35.2); Mean Corpuscular Hemoglobin 29.2 pg (26.7-34.0); Mean Corpuscular Volume 89.6 fL (81.0-99.0); Mean Platelet Volume 9.9 fL (9.5-13.5); Monocytes Absolute Auto 1.5 10^3/uL (0.3-0.8); Monocytes Percent Auto 10.6 % (1.7-12.0); Neutrophils Absolute Auto 9.1 10^3/uL (1.4-6.5); Neutrophils Percent Auto 65.7 % (43.0-75.0); Platelet Count 213 10^3/uL (150-450); Red Blood Count 4.42 10^6/uL (4.20-5.40); Red Cell Distribution Width 14.5 % (11.0-15.0); White Blood Count 13.8 10^3/uL (4.0-11.0)
[2023-03-17 05:32] LABS: Alanine Aminotransferase 11 U/L (14-59); Albumin Globulin Ratio 1.2; Alkaline Phosphatase 67 U/L (46-116); Anion Gap 11.1; Aspartate Amino Transferase 16 U/L (15-37); BUN Creatinine Ratio 18.2; Bilirubin Total 0.8 mg/dL (0.2-1.0); Calcium 8.2 mg/dL (8.5-10.1); Carbon Dioxide 28.9 mmol/L (21.0-32.0); Chloride 99 mmol/L (98-107); Estimated GFR (African America >60 (>=60); Estimated GFR (Non-African Ame >60 (>=60); Globulin 2.5 g/dL; Glucose 105 mg/dL (74-106); Sodium 136 mmol/L (136-145); Total Protein 5.5 g/dL (6.4-8.2)
[2023-03-17] MEDS: CEFTRIAXONE 1,000 MG in 0.9 % SODIUM CHLORIDE 50 ML 100 MG IV (09:02)
[2023-03-17] MEDS: 0.9 % SODIUM CHLORIDE 250 ML 25 ML IV (09:05)
[2023-03-17] MEDS: ESCITALOPRAM 10 MG TABLET 5 MG PO (09:20)
[2023-03-17] MEDS: METOPROLOL TARTRATE 25 MG TABLET PO ×2 (09:20→22:27)
[2023-03-17] MEDS: FERROUS SULFATE 325 MG TABLET PO (09:20)
[2023-03-17] MEDS: LISINOPRIL 10 MG TABLET 20 MG PO (09:20)
[2023-03-17] MEDS: AMLODIPINE BESYLATE 5 MG TABLET 10 MG PO (09:20)
[2023-03-17] MEDS: CALCIUM CARBONATE 600 MG TABLET PO (09:20)
--- NOTE | 2023-03-17 09:48 | CM.NOTE ---
Rounding with Dr. Kenny. Pt. family at bedside. Pt. lethargic. Nurse Marcela voices patient is on [address] Kenny states to family she looks a lot better than yesterday. Discussed recent MRI results with family and CT of chest results, urine positive for slight bacteria. Dr. Kenny states he feels she is at the baseline and discussed possible baseline. Patient lives with daughter, who is not present at this time. Nurse Medrano out in hallway...states pt. refused to work with PT today but bed exercises were completed. Nurse came in room, Dr. Kenny asked daughter Dana at bedside and nurse to assist patient up in bed to see how she moves around. Dr. Kenny requests PT to come and work with the patient again. Dr. Kenny spoke with PT on the phone to highly encourage the patient to get out of bed and participate with PT so he can get a better understanding of her functionality. Continue to follow after PT eval. regarding potential discharge needs.
[2023-03-17] MEDS: POTASSIUM CHLORIDE 40 MEQ in 0.9 % SODIUM CHLORIDE 250 ML 67.5 MEQ IV (10:04)
--- NOTE | 2023-03-17 11:20 | PM.IMPN1 ---
Progress Note: A&P Assessment and Plan (1) Metabolic encephalopathy: Assessment and Plan: Resolved. Back to her baseline. Likely sec to UTI/Pneumonia. MRI - no acute pathology. (2) Hypertensive emergency: Assessment and Plan: BP is improved. C/w current regimen. (3) Acute on chronic diastolic (congestive) heart failure: Assessment and Plan: likely due to poorly controlled BP. Received Lasix 40 mg once. Euvolemic now. Monitor. 2D ECHO shows normal LVEF, Mild diastolic dysfunction, mod MR, mild TR (4) Acute and chronic respiratory failure with hypoxia: Assessment and Plan: Back to baseline now. On 2 L O2. No resp distress. (5) UTI (urinary tract infection): Assessment and Plan: UA c/w UTI. F/u urine cx. (6) Sepsis: Assessment and Plan: Stable hemodynamics now. On IV rocephin (7) Pneumonia: Assessment and Plan: B/l infiltrate vs atelectasis on CT chest Being treated with IV rocpehin (8) Lactic acidosis: Assessment and Plan: due to hypoxia/sepsis (9) Dementia: Assessment and Plan: Moderate-severe dementia at baseline. Back to her baseline. Qualifiers: Dementia behavioral or psychological symptom: with mood disturbance Dementia severity: moderate Dementia type: vascular dementia Qualified Code(s): F01.B3 - Vascular dementia, moderate, with mood disturbance (10) Depression: Assessment and Plan: Cw/ home med (11) Hyperlipidemia: Assessment and Plan: C/w statin (12) Hypertension: Assessment and Plan: At goal now. C/w current regimen. (13) Generalized weakness: Assessment and Plan: Generalized weakness, limited functional capacity. PT/OT eval. PT/OT recommended SNF for her. Referral sent over today, Internal Medicine - PN: Subj Subjective Interval history: Seen and examined. No overnight events. Back to baseline O2. Seems to be at baseline mental status Was unco operative and did not let me examine her. Reports feeling cold and weak. Daughter at bedside also agreed that she is at baseline Exam Constitutional Vital Signs, click to edit/add: Last Vital Signs Temp 99.1 F 03/17/23 06:00 Pulse 70 03/17/23 06:00 Resp 16 03/17/23 06:00 BP 139/73 H 03/17/23 06:00 Pulse Ox 96 03/17/23 09:00 O2 Del Method Nasal Cannula 03/17/23 09:00 O2 Flow Rate 2 03/17/23 09:00 Documenting provider has reviewed patient's vital signs: yes Common normals: no apparent distress and average body habitus General appearance: frail appearing Orientation/consciousness: Yes oriented to person and Yes oriented to place HENMT Common normals: normocephalic and head/scalp atraumatic Eye Common normals: conjunctivae normal and no scleral icterus Respiratory Other: Patient did not let me examine resp system Cardio Other: Patient did not let me examine cvs system GI Other: Patient refused to let me examine GI system Extremity Common normals: normal to inspection Other: limited exam as patient refused and did not co operate Neuro [place] Coma Scale: document GCS findings [place] coma scale eye opening: Spontaneous [place] coma scale verbal response: Orientated [place] coma scale motor response: Obey commands [place] coma scale total score: 15 Common normals: moves all extremities Psych Common normals: mental status grossly normal Attitude: uncooperative Activity/motor behavior: avoids eye contact Speech: normal speech Internal Medicine - PN: Obj Da Labs Labs: Laboratory Results - last 24 hr 03/16/23 03/16/23 03/17/23 05:58 10:52 04:35 WBC 13.8 H RBC 4.42 Hgb 12.9 Hct 39.6 MCV 89.6 MCH 29.2 MCHC 32.6 RDW 14.5 Plt Count 213 MPV 9.9 Neut % (Auto) 65.7 Lymph % (Auto) 23.1 Graham % (Auto) 10.6 Eos % (Auto) 0.0 L Baso % (Auto) 0.3 Neut # (Auto) 9.1 H Lymph # (Auto) 3.2 Graham # (Auto) 1.5 H Eos # (Auto) 0.0 Baso # (Auto) 0.0 Abs Immat Gran (auto) 0.04 H Imm/Tot Granulo (auto) 0.3 Sodium 136 Potassium 3.0 L Chloride 99 Carbon Dioxide 28.9 Anion Gap 11.1 BUN 12.0 Creatinine 0.66 Est GFR ( Amer) >60 Est GFR (Non-Af Amer) >60 BUN/Creatinine Ratio 18.2 Glucose 105 Lactate 1.2 Calcium 8.2 L Total Bilirubin 0.8 AST 16 ALT 11 L Alkaline Phosphatase 67 Total Protein 5.5 L Albumin 3.0 L Globulin 2.5 Albumin/Globulin Ratio 1.2 Mark H. influenza (PCR) Not detected A.calcoaceticus-baumannii cmplx PCR Not detected Bacteroides fragilis Not detected Lucinda albicans (PCR) Not detected Lucinda auris (PCR) Not detected C. glabrata (PCR) Not detected C. krusei (PCR) Not detected C. parapsilosis (PCR) Not detected C. tropicalis (PCR) Not detected C. neoform/gattii (PCR) Not detected Enterobacterales (PCR) Not detected E. cloacae complex PCR Not detected Enterococc faecalis PCR Not detected Enterococc faecium PCR Not detected E. coli (PCR) Not detected Klebsiella aerogenes (PCR) Not detected Klebsiella oxytoca PCR Not detected K. pneumoniae group (PCR) Not detected List. monocytogenes PCR Not detected N. meningitidis (PCR) Not detected Proteus spp. (copies/mL) Not detected Salmonella spp. (PCR) Not detected Serratia marcescens PCR Not detected Staphylococcus sp PCR Not detected Staph aureus (PCR) Not detected mecA/C & MREJ Resist Gene Not applicable mecA/C-Methicil Resis Gene Not applicable mcr-1 Colistin Res Gene PCR Not applicable Staph epidermidis (PCR) Not detected Staph lugdunensis (TEM-PCR) Not detected S. maltophilia (PCR) Not detected Streptococcus sp PCR Not detected Strep agalactiae (PCR) Not detected Strep pneumoniae (PCR) Not detected S. pyogenes (PCR) Not detected P. aeruginosa (PCR) Not detected Tari/B-Vanco Res Genes Not applicable blaIMP Car res Gene PCR Not applicable KPC (blaKPC) Detect PCR Not applicable NDM (blaNDM) Detect PCR Not applicable OXA-48 Carbapenem Resis Gene (PCR) Not applicable blaVIM Car Res Gene PCR Not applicable CTX-M ESBL (PCR) Not applicable Urinary Catheter Management Urinary Catheter Management Urethral: Cath placed during this visit: no
--- NOTE | 2023-03-17 12:02 | CM.NOTE ---
PT and OT are recommending SNF. I spoke with Dr. Kenny and daughter Serena via phone. Serena is in agreement with this plan and gave 3 SNF choices after reviewing the CMS STAR ratings with her. Choice #1-[facility], #2-[facility], #3-[facility] in [place]. Pt. is confused at this time so unable to get accurate choices from her.
--- NOTE | 2023-03-17 13:31 | CM.NOTE ---
Spoke with Savannah regarding new referral, bed available at [facility]. Clinical all faxed over to [facility] for skilled therapy.
--- NOTE | 2023-03-17 15:39 | CM.NOTE ---
Savannah called from [place] and need more information that pt is participating in PT, discussed with nursing, pt, and family.
[2023-03-17] MEDS: ENOXAPARIN SODIUM 40 MG/0.4 ML SYRINGE SUBQ (16:13)
[2023-03-17] MEDS: ATORVASTATIN CALCIUM 10 MG TABLET PO (22:26)
[2023-03-17] MEDS: ACETAMINOPHEN 325 MG TABLET 650 MG PO (22:27)
[2023-03-18 04:36] LABS: Basophils Absolute Auto 0.1 10^3/uL (0.0-0.1); Basophils Percent Auto 0.6 % (0.2-2.0); Eosinophils Absolute Auto 0.1 10^3/uL (0.0-0.7); Eosinophils Percent Auto 0.9 % (0.9-7.0); Hematocrit 38.9 % (36.0-48.0); Hemoglobin 12.6 g/dL (12.0-16.0); Immature Granulocytes Abs Auto 0.03 10^3/uL (0.00-0.03); Immature Granulocytes Pct Auto 0.3 % (0.0-0.5); Lymphocytes Absolute Auto 3.1 10^3/uL (1.2-3.8); Lymphocytes Percent Auto 35.2 % (20.5-60.0); Mean Corpuscular HGB Conc 32.4 g/dL (29.9-35.2); Mean Corpuscular Hemoglobin 28.6 pg (26.7-34.0); Mean Corpuscular Volume 88.4 fL (81.0-99.0); Mean Platelet Volume 9.7 fL (9.5-13.5); Monocytes Absolute Auto 1.1 10^3/uL (0.3-0.8); Neutrophils Absolute Auto 4.5 10^3/uL (1.4-6.5); Platelet Count 205 10^3/uL (150-450); Red Cell Distribution Width 14.2 % (11.0-15.0); White Blood Count 8.7 10^3/uL (4.0-11.0)
[2023-03-18 05:04] LABS: Alanine Aminotransferase 11 U/L (14-59); Albumin Globulin Ratio 1.1; Albumin Level 2.7 g/dL (3.4-5.0); Alkaline Phosphatase 62 U/L (46-116); Anion Gap 8.4; Aspartate Amino Transferase 15 U/L (15-37); BUN Creatinine Ratio 21.9; Bilirubin Total 0.7 mg/dL (0.2-1.0); Calcium 8.3 mg/dL (8.5-10.1); Carbon Dioxide 30.7 mmol/L (21.0-32.0); Chloride 101 mmol/L (98-107); Estimated GFR (African America >60 (>=60); Estimated GFR (Non-African Ame >60 (>=60); Globulin 2.5 g/dL; Glucose 89 mg/dL (74-106); Potassium 3.1 mmol/L (3.5-5.1); Sodium 137 mmol/L (136-145); Total Protein 5.2 g/dL (6.4-8.2)
[2023-03-18 06:00] VITALS: BP 136/76; PULSE 61; RESP 18; TEMP 36.8; O2SAT 92
[2023-03-18 08:53] VITALS: O2SAT 92
--- NOTE | 2023-03-18 09:35 | REH.PTDLY ---
Physical Therapy Daily Note PT Daily Note/Assess Start: 03/18/23 09:30 Freq: Status: Active Protocol: Document 03/18/23 09:30 IVONE (Rec: 03/18/23 09:35 [email or web address] [id number]) Physical Therapy Daily Note/Assessment Time In 09:05 Time Out 09:20 Pain Level 0 Subjective No complaints this morning, pt wants to go home. Willing to participate in therapy today. Pt states she does not wear O2 at home, but nursing states she does. Therapeutic Exercise Minutes (minutes) 7 Therapeutic Exercise Units 1 Therapeutic Exercise Treatment Instructed in B LE seated exs 10x ea including AP, LAQ, marching, and hip abd step outs for improved strength. Cues to keep pt on task. Therapeutic Activity Minutes (minutes) 4 Therapeutic Activity Units 0 Bed Mobility Ability Modified Independent Chair Transfer Ability Contact Guard Assist Therapeutic Activity Comments Pt able to transfer supine to sit Supervised. Sit to stand transfers CGA. Gait training with RW 15 feet into restroom. OT does self care with pt. Ambulated to chair with RW 20 feet CGA. Cues when sitting back in chair to reach back with B UE rather than holding onto RW. Total Therapy Minutes 11 Total Physical Therapy Units 1 Daily Note Summary Much better cooperation today during rx, willing to participate in therapy. Pt does well with transfers. Pt fatigues with short distance ambulation.
[2023-03-18] MEDS: LISINOPRIL 10 MG TABLET 20 MG PO (09:41)
[2023-03-18] MEDS: CALCIUM CARBONATE 600 MG TABLET PO (09:41)
[2023-03-18] MEDS: METOPROLOL TARTRATE 25 MG TABLET PO (09:42)
[2023-03-18] MEDS: ESCITALOPRAM 10 MG TABLET 5 MG PO (09:42)
[2023-03-18] MEDS: FERROUS SULFATE 325 MG TABLET PO (09:42)
[2023-03-18] MEDS: AMLODIPINE BESYLATE 5 MG TABLET 10 MG PO (09:43)
[2023-03-18] MEDS: CEFTRIAXONE 1,000 MG in 0.9 % SODIUM CHLORIDE 50 ML 100 MG IV (09:45)
[2023-03-18] MEDS: POTASSIUM CHLORIDE 40 MEQ in 0.9 % SODIUM CHLORIDE 250 ML 67.5 MEQ IV (09:45)
--- NOTE | 2023-03-18 10:09 | CM.NOTE ---
Faxed updates to [facility] for PT and OT, spoke with pt's daughter Serena this AM regarding plan of care. Pt is stating I want to go back home. Pt continues to have some underlying confusion at times and daughter would like pt to get skilled rehab prior to returning to home. Serena is in [place] at doctors appt with her but will speak with pt when she returns.
--- NOTE | 2023-03-18 10:29 | PM.DS1 ---
DS: Providers Provider Date of admission: 03/16/23 07:36 Primary care physician: FELICIANO MUSTAFA Consults: 03/16/23 10:16 Occupational Therapy Eval and Treat Routine Physical Therapy Eval and Treat Routine Attending physician on discharge: Shaikh Efraín Discharging clinician: Shaikh Efraín Anticipated date of discharge: 03/18/23 DS: Diagnosis Discharge Diagnosis (1) Metabolic encephalopathy: Assessment and plan: Resolved. Back to baseline (2) Hypertensive emergency: Assessment and plan: BP at goal now. Increase home dose of Lisinopril to 20 mg daily and Amlodipine to 5 mg daily (3) Acute on chronic diastolic (congestive) heart failure: Assessment and plan: Euvolemic. Received one dose of Iv Lasix. likely exacerbated by uncontrolled HTN. (4) Acute and chronic respiratory failure with hypoxia: Assessment and plan: Back to baseline. No resp distress. (5) UTI (urinary tract infection): Assessment and plan: Will d/c home on Ceftin (6) Sepsis: Assessment and plan: Stable hemodynamics. Will d/c on oral abx (7) Pneumonia: Assessment and plan: B/l PNA. Back to baseline. No resp complaints. Will d/c on oral Ceftin (8) Lactic acidosis: (9) Dementia: Assessment and plan: Mod severe at baseline. Outpatient f/u Qualifiers: Dementia behavioral or psychological symptom: with mood disturbance Dementia severity: moderate Dementia type: vascular dementia Qualified Code(s): F01.B3 - Vascular dementia, moderate, with mood disturbance (10) Depression: Assessment and plan: Stable. C/w home meds (11) Hyperlipidemia: Assessment and plan: C/w statin (12) Hypertension: Assessment and plan: Home BP regimen adjusted. BP at goal now. (13) Generalized weakness: Assessment and plan: Improved and more or less at baseline. Accepted for SNF placement. DS: Summary Hospital Course Hospital Course: Patient admitted for acute change in mental status - sec to UTI, acute on chronic resp failure with hypoxia due to PNA and was treated with IV rocephin. She also received one dose of IV lasix for volume overload. She also presented with HTN emergency and since her mental status change was so acute - CTH and subsequently and MRI was ordered to r/o acute intracranial pathology. There was no evidence of CVA/Intra cranial bleeding or neoplasm noted on imaging. Blood cx positive for Gram positive bacilli - likely contaminant. Patient back to her baseline mental status, stable for d/c on oral Ceftin for UTI and Pneumonia. Status at Discharge Functional status at discharge: uses cane/walker Overall status at discharge: patient is back to baseline Time Spent with Patient Time attestation: Total time spent providing and/or coordinating discharge services: Time spent: greater than 30 minutes Exam Constitutional Vital Signs, click to edit/add: Last Vital Signs Temp 98.3 F 03/18/23 06:00 Pulse 61 03/18/23 06:00 Resp 18 03/18/23 06:00 BP 136/76 H 03/18/23 06:00 Pulse Ox 92 L 03/18/23 08:53 O2 Del Method Nasal Cannula 03/18/23 08:53 O2 Flow Rate 2 03/18/23 08:53 Documenting provider has reviewed patient's vital signs: yes Common normals: no apparent distress and oriented x3 Other: Sitting on chair, comfortable, eating food HENMT Common normals: normocephalic and head/scalp atraumatic Respiratory Common normals: normal respiratory effort, no use of accessory muscles and clear to auscultation bilaterally Effort & inspection: able to speak in complete sentences Cardio Common normals: no JVD, regular rate, regular rhythm, S1 normal heart sound and S2 normal heart sound GI Common normals: Normal to inspection, nondistended, normoactive bowel sounds present, soft to palpation, non-tender and no hepatosplenomegaly Neuro Common normals: oriented x3, moves all extremities and no focal motor deficits Psych Common normals: mental status grossly normal, denies hallucinations, denies homicidal ideation and denies suicidal ideation DS: Data Data Completed and Pending Labs on day of discharge: Labs from last 24 hours 03/18/23 03/18/23 04:20 04:00 WBC 8.7 RBC 4.40 Hgb 12.6 Hct 38.9 MCV 88.4 MCH 28.6 MCHC 32.4 RDW 14.2 Plt Count 205 MPV 9.7 Neut % (Auto) 51.0 Lymph % (Auto) 35.2 Jennings % (Auto) 12.0 Eos % (Auto) 0.9 Baso % (Auto) 0.6 Neut # (Auto) 4.5 Lymph # (Auto) 3.1 Jennings # (Auto) 1.1 H Eos # (Auto) 0.1 Baso # (Auto) 0.1 Abs Immat Gran (auto) 0.03 Imm/Tot Granulo (auto) 0.3 Sodium 137 Potassium 3.1 L Chloride 101 Carbon Dioxide 30.7 Anion Gap 8.4 BUN 14.0 Creatinine 0.64 Est GFR ( Amer) >60 Est GFR (Non-Af Amer) >60 BUN/Creatinine Ratio 21.9 Glucose 89 Calcium 8.3 L Total Bilirubin 0.7 AST 15 ALT 11 L Alkaline Phosphatase 62 Total Protein 5.2 L Albumin 2.7 L Globulin 2.5 Albumin/Globulin Ratio 1.1 Preliminary micro results at discharge 03/16/23 06:11 Blood Culture Result 1 - Preliminary Blood Discharge Plan Discharge Disposition: Xfer SNF Condition: Good Discharge Medications: New amlodipine 5 mg Tablet 5 mg PO QDAY Qty: 30 0RF lisinopril 10 mg Tablet 20 mg PO QDAY Qty: 60 0RF cefuroxime axetil 500 mg tablet 500 mg PO BID Qty: 10 0RF Continued cyanocobalamin (vitamin B-12) 1,000 mcg tablet 1,000 mcg PO QAM Rx Instructions: PER RETAIL FILL HX - LAST FILLED 01/22/23 #90 FOR A 90 DAY SUPPLY escitalopram oxalate 5 mg tablet 5 mg PO QDAY ferrous sulfate [FeroSul] 325 mg (65 mg iron) tablet 325 mg PO QDAY metoprolol tartrate 25 mg tablet 25 mg PO Q12H simvastatin 20 mg tablet 20 mg PO QPM Rx Instructions: PER RETAIL FILL HX - LAST FILLED 02/16/23 #90 FOR A 90 DAY SUPPLY calcium carbonate [Calcium 600] 600 mg calcium (1,500 mg) tablet 600 mg PO DAILY Discontinued amlodipine 10 mg tablet 2.5 mg PO QDAY Patient Comments: Hold if BP is less then 130/70 Rx Instructions: PER PT FILL HX - LAST FILLED 02/16/23 #90 FOR A 90 DAY SUPPLY TAKE 1 PO ONCE A DAY lisinopril 10 mg tablet 10 mg PO QDAY Forms: Portal Instructions Follow Up Appointments: PCP in one week
--- NOTE | 2023-03-18 10:46 | CM.NOTE ---
Evan from [facility] called and they can accept the pt today for skilled therapy, notified RN caring for pt, daughter, and pt. Everyone ok for pt to transfer to [facility] today. Dr. Kenny will put in discharge for pt. Skylar grand-daughter will call with transport time, she is going to transport pt to the [facility].
--- NOTE | 2023-03-18 11:19 | CM.NOTE ---
Discharge summary faxed to Evan at [facility]. Called Evan also, pt will be transported by grand-daughter @ 4:30.
--- NOTE | 2023-03-18 11:34 | CM.NOTE ---
HENS completed online for pt to transfer to skilled therapy.
[2023-03-18 14:00] VITALS: BP 116/69; PULSE 63; RESP 14; TEMP 36.8; O2SAT 94
== END 2023-03-18 16:31 | DRG 871 ==
LOC: ER 06:34 → MS 07:38
PROVIDERS: Admitting Provider Internal Medicine; Emergency Provider Emergency Medicine; PCP Family Medicine; Visit Provider Internal Medicine
DX: A41.9 Sepsis, unspecified organism (principal); G93.41 Metabolic encephalopathy; I50.33 Acute on chronic diastolic (congestive) heart failure; J18.9 Pneumonia, unspecified organism; J96.21 Acute and chronic respiratory failure with hypoxia; N39.0 Urinary tract infection, site not specified; I16.1 Hypertensive emergency; E87.20 Acidosis, unspecified; F01.B3 Vascular dementia, moderate, with mood disturbance; I11.0 Hypertensive heart disease with heart failure; Z99.81 Dependence on supplemental oxygen; F32.A Depression, unspecified; E78.5 Hyperlipidemia, unspecified; Z79.899 Other long term (current) drug therapy; Z87.891 Personal history of nicotine dependence; R53.1 Weakness; Z82.49 Family history of ischemic heart disease and other diseases of the circulatory system; Z80.9 Family history of malignant neoplasm, unspecified; Z88.2 Allergy status to sulfonamides
CPT/HCPCS: 36415; 36600; 70450; 70551; 71045; 71250; 80053; 80307; 81003; 81015; 82140; 82805; 83605; 83880; 84484; 85007; 85025; 85610; 85730; 87040; 87086; 87150; 87186; 93005; 93306; 94761; 96365; 96366; 96367; 96368; 96372; 96375; 97110; 97161; 97165; 97530; 97535; 99285; J3480

== ENCOUNTER 2025-07-27 14:31 | Emergency (ER) | payer MEDICARE, SELFPAY ==
[2025-07-27] VITALS (10 sets, daily range): BP systolic 176–208; BP diastolic 83–97; PULSE 65–66; TEMP 36.6; O2SAT 89–93
--- NOTE | 2025-07-27 14:50 | ECG_ITS ---
The [facility] Test Date: 2025-07-27 Pat Name: SRIRAM LEBLANC Department: Room: - Gender: Female [employer]: : 1935 Requested By: [id number] Order Number: [id number] Reading MD: JOHNATHAN TORRES M.D. Measurements Intervals [place] Rate: 63 P: 51 MN: 206 QRS: 50 QRSD: 80 T: 45 QT: 432 QTc: 440 Interpretive Statements 1100 Sinus rhythm 9110 normal ECG Compared to ECG 03/16/2023 05:54:29 No significant changes Electronically Signed On 07-27-2025 21:56:03 EST by JOHNATHAN TORRES M.D.
--- NOTE | 2025-07-27 14:51 | CT_ITS ---
The [address] [address] Patient Name: SRIRAM LEBLANC MRN: [id number] date: 1935 Sex: F Assigned Patient Location: ER Current Patient Location: ER Accession/Order Number: [id number] Exam Date: 07/27/2025 15:20 Report Date: 07/27/2025 15:46 At the request of: BRYANT PEREA MD Procedure: CT head/brain wo con CT BRAIN WITHOUT CONTRAST: CLINICAL HISTORY: fall COMPARISON: None TECHNIQUE: Contiguous axial unenhanced images were obtained through the brain. This CT exam was performed using one or more following dose reduction techniques: Automated exposure control, adjustment of the mA and/or kV according to patient size, or use of iterative reconstruction technique. FINDINGS: There is no evidence of midline shift, intra or extra-axial fluid collection, hemorrhage or CT evidence of of acute large vascular distribution stroke. Minimal central involutional changes and chronic small vessel ischemic disease. There are vascular calcifications identified. Visualized intraorbital contents appear unremarkable. Visualized paranasal sinuses are clear. The surrounding soft tissues are normal. CT/CT head/brain wo con IMPRESSION: NO ACUTE INTRACRANIAL ABNORMALITY. MINIMAL CHRONIC SMALL VESSEL CHANGES Impression dictated by: Brenden Castro M.D. 07/27/2025 3:46 PM Dictation Location: [place] [address] Electronically authenticated by: [id number] Y Date: 07/27/2025 15:46
--- NOTE | 2025-07-27 14:51 | CT_ITS ---
The [address] [address] Patient Name: SRIRAM LEBLANC MRN: [id number] date: 1935 Sex: F Assigned Patient Location: ER Current Patient Location: ER Accession/Order Number: [id number] Exam Date: 07/27/2025 15:20 Report Date: 07/27/2025 15:51 At the request of: BRYANT PEREA MD Procedure: CT cervical spine wo con CT CERVICAL SPINE WITHOUT CONTRAST WITH 3D RECONSTRUCTIONS: CLINICAL HISTORY: Fall, reported C1 and C2 fracture COMPARISON: X-ray cervical spine outside facility 07/27/2025 TECHNIQUE: Spiral axial unenhanced images were obtained through the cervical spine. Sagittal, coronal and 3D volume-rendered reconstructions were also reviewed. This CT exam was performed using one or more following dose reduction techniques: Automated exposure control, adjustment of the mA and/or kV according to patient size, or use of iterative reconstruction technique. FINDINGS: Nondisplaced fractures involving the C1 vertebral body of both lateral masses and involving the anterior arch. Subtle nondisplaced fracture base of the dens, type II 2 odontoid fracture. Prevertebral soft tissue swelling. No additional fracture or malalignment identified. Moderate severe disc space narrowing and osteophytosis C4-T1. Multilevel [id number]-cc-jcvtcacl facet arthropathy. There are vascular calcifications. Minimal left apical emphysematous changes. CT/CT cervical spine wo con IMPRESSION: Nondisplaced comparison fracture through C1 and nondisplaced type II odontoid fracture. Impression dictated by: Brenden Castro M.D. 07/27/2025 3:51 PM Dictation Location: [place] [address] Electronically authenticated by: [id number] Y Date: 07/27/2025 15:51
--- NOTE | 2025-07-27 14:52 | ED.GENADUL1 ---
HPI HPI - General Adult General Chief complaint: Fall Stated complaint: FALL Time Seen by Provider: 07/27/25 14:45 Source: patient Mode of arrival: Wheelchair History of Present Illness HPI narrative: 89-year-old female presents for abnormal x-ray. She had fallen 3 days ago and hit the right side of her head in her home while she was using her walker. She had outpatient x-rays which reportedly showed C1 and C2 fractures. She states her neck hurts if she moves it. No weakness or numbness. She does not take blood thinners. She came in by private auto. Related Data Home Medications ?Medication ?Instructions ?Recorded ?Confirmed calcium carbonate (Calcium 600) 600 mg PO DAILY 03/16/23 03/16/23 cyanocobalamin (vitamin B-12) 1,000 mcg PO QAM 03/16/23 03/16/23 1,000 mcg tablet escitalopram oxalate 5 mg tablet 5 mg PO QDAY 03/16/23 03/16/23 ferrous sulfate 325 mg (65 mg 325 mg PO QDAY 03/16/23 03/16/23 iron) tablet (FeroSul) metoprolol tartrate 25 mg tablet 25 mg PO Q12H 03/16/23 03/16/23 simvastatin 20 mg tablet 20 mg PO QPM 03/16/23 03/16/23 Previous Rx's ?Medication ?Instructions ?Recorded amlodipine 5 mg tablet 5 mg PO QDAY #30 tabs 03/18/23 cefuroxime axetil 500 mg tablet 500 mg PO BID #10 tabs 03/18/23 lisinopril 10 mg tablet 20 mg (2 x 10 mg) PO QDAY #60 tabs 03/18/23 Allergies Allergy/AdvReac Type Severity Reaction Status Date / Time Sulfa (Sulfonamide Allergy Intermediate Confusion Verified 03/16/23 06:45 Antibiotics) Opioid HPI Opioid Management Most Recent Opioid Data: Last Pain Intensity 0 03/18/23, 09:30 Ur Phencyclidine Scrn, (NEGATIVE) Negative 03/16/23, 06:05 Review of Systems ROS Narrative A ten point review of systems is negative except as noted above. [facility] Medical History (Updated 07/27/25 @ 17:19 by Juaquin Benavidez MD) Pneumonia ?J18.9 - Pneumonia, unspecified organism (ICD-10) Dementia ?F03.90 - Unspecified dementia, unspecified severity, without behavioral disturbance, psychotic disturbance, mood disturbance, and anxiety (ICD-10) UTI (urinary tract infection) ?N39.0 - Urinary tract infection, site not specified (ICD-10) Acute and chronic respiratory failure with hypoxia ?J96.21 - Acute and chronic respiratory failure with hypoxia (ICD-10) Acute on chronic diastolic (congestive) heart failure ?I50.33 - Acute on chronic diastolic (congestive) heart failure (ICD-10) COPD (chronic obstructive pulmonary disease) ?J44.9 - Chronic obstructive pulmonary disease, unspecified (ICD-10) Closed hip fracture requiring operative repair ?S72.009A - Fracture of unspecified part of neck of unspecified femur, initial encounter for closed fracture (ICD-10) Hip fracture ?S72.009A - Fracture of unspecified part of neck of unspecified femur, initial encounter for closed fracture (ICD-10) Anxiety ?F41.9 - Anxiety disorder, unspecified (ICD-10) Depression ?F32.A - Depression, unspecified (ICD-10) Hyperlipidemia ?E78.5 - Hyperlipidemia, unspecified (ICD-10) Hypertension ?I10 - Essential (primary) hypertension (ICD-10) Surgical History History of hip surgery ?Z98.890 - Other specified postprocedural states (ICD-10) Family History Mother Family history of cancer Sister Family history of cancer Family history of hypertension Brother Family history of myocardial infarction Father Family history of cancer Social History Within the past year, how often did you have a drink containing alcohol: never Score interpretation: A score less than 3 is consistent with normal alcohol consumption. Smoking status: Former smoker Non-prescribed substance use: denies use Previous occupational history: Retired Highest level of school completed/degree received: 10th grade Little interest or pleasure in doing things: several days Feeling down, depressed, or hopeless: more than half the days Feel stressed/tense/nervous/anxious/difficulty sleeping: to some extent Life stressors: other Life stressor details: recent hip fracture Do you think of yourself as: straight/heterosexual Gender Identity: female Exam Narrative Exam Narrative: Nurses note and vital signs reviewed General:The patient appears in no acute distress. The nursing staff has placed a c-collar on her. Skin:Warm, dry, no pallor noted.There is no rash noted. Head:Normocephalic, bruising present on the right side of her face Eye: Normal conjunctiva, no drainage Ears, Nose, Mouth, and Throat: oral mucosa is moist. Nares patent. Cardiovascular:Regular Rate and Rhythm Respiratory:Patient is in no distress, no accessory muscle use, lungs are clear to auscultation, no wheezing, rales or rhonchi Back:non-tender GI: Soft and nontender Musculoskeletal: No palpable tenderness to extremity Neurological: Awake and alert; hand grasp 5 out of 5 and symmetric. She is able to move her legs without difficulty. Psychiatric:Cooperative Constitutional Vital Signs, click to edit/add: Last Vital Signs Temp 97.8 F 07/27/25 14:38 Pulse 66 07/27/25 16:40 Resp 18 07/27/25 16:40 BP 208/97 H 07/27/25 16:44 Pulse Ox 92 L 07/27/25 16:40 O2 Del Method Nasal Cannula 07/27/25 14:38 O2 Flow Rate 4 07/27/25 14:38 Course Vital Signs Vital signs: Vital Signs Temperature 97.8 F 07/27/25 14:38 Pulse Rate 65 07/27/25 14:38 Respiratory Rate 20 07/27/25 14:38 Blood Pressure 180/90 H 07/27/25 14:38 Pulse Oximetry 89 L 07/27/25 14:38 Oxygen Delivery Method Nasal Cannula 07/27/25 14:38 Oxygen Delivery Flow Rate 4 07/27/25 14:38 Temperature 97.8 F 07/27/25 14:38 Pulse Rate 66 07/27/25 16:40 Respiratory Rate 18 07/27/25 16:40 Blood Pressure 208/97 H 07/27/25 16:44 Pulse Oximetry 92 L 07/27/25 16:40 Oxygen Delivery Method Nasal Cannula 07/27/25 14:38 Oxygen Delivery Flow Rate 4 07/27/25 14:38 Medical Decision Making MDM Narrative Medical decision making narrative: CT of head per radiologist is negative. CT per radiologist of the C-spine shows C1 and C2 fractures. The case was discussed with Dr. Wilburn, neurosurgeon at [facility]. He has reviewed the images directly and we discussed the case. He states that the fractures are not acute and that she does not need to be transferred and does not need any acute intervention. In speaking to the patient and her daughter the patient apparently fell about 2 years ago and broke her hip and broke a rib and had a pneumothorax as well. Her head and her neck were not investigated at that time. The patient has no neurologic deficits. Dr. Wilburn asked that the patient continue to wear the collar at home and return here for any new symptoms. Treatment diagnosis and follow-up were discussed thoroughly. Differential Diagnosis Differential Diagnosis: Acute fracture, old fracture, intracranial hemorrhage Lab Data Lab results reviewed: Yes I reviewed the patient's lab results Labs: Lab Results 07/27/25 Range/Units 14:55 WBC 12.7 H (4.0-11.0) 10^3/uL RBC 4.52 (4.20-5.40) 10^6/uL Hgb 13.9 (12.0-16.0) g/dL Hct 44.1 (36.0-48.0) % MCV 97.6 (81.0-99.0) fL MCH 30.8 (26.7-34.0) pg MCHC 31.5 (29.9-35.2) g/dL RDW 13.0 (11.0-15.0) % Plt Count 263 (150-450) 10^3/uL MPV 10.1 (9.5-13.5) fL Neut % (Auto) 68.7 (43.0-75.0) % Lymph % (Auto) 20.6 (20.5-60.0) % [place] % (Auto) 9.4 (1.7-12.0) % Eos % (Auto) 0.6 L (0.9-7.0) % Baso % (Auto) 0.3 (0.2-2.0) % Neut # (Auto) 8.7 H (1.4-6.5) 10^3/uL Lymph # (Auto) 2.6 (1.2-3.8) 10^3/uL [place] # (Auto) 1.2 H (0.3-0.8) 10^3/uL Eos # (Auto) 0.1 (0.0-0.7) 10^3/uL Baso # (Auto) 0.0 (0.0-0.1) 10^3/uL Abs Immat Gran (auto) 0.05 H (0.00-0.03) 10^3/uL Imm/Tot Granulo (auto) 0.4 (0.0-0.5) % Sodium 142 (136-145) mmol/L Potassium 4.0 (3.5-5.1) mmol/L Chloride 101 (98-107) mmol/L Carbon Dioxide 36.2 H (21.0-32.0) mmol/L Anion Gap 8.8 BUN 21.0 H (7.0-18.0) mg/dL Creatinine 1.13 H (0.55-1.02) mg/dL Est GFR ( Amer) 55 L (>=60 mL/min/1.73m^2) Est GFR (Non-Af Amer) 45 L (>=60 mL/min/1.73m^2) BUN/Creatinine Ratio 18.6 Glucose 123 H (74-106) mg/dL Calcium 9.4 (8.5-10.1) mg/dL Imaging Data CT C-spine: Radiologist's impression: ITS Impressions Cervical Spine CT 07/27/25 14:51 IMPRESSION: Nondisplaced comparison fracture through C1 and nondisplaced type II odontoid fracture. Impression dictated by: Brenden Castro M.D. 07/27/2025 3:51 PM Dictation Location: [facility] Electronically authenticated by: [id number] Y Date: 07/27/2025 15:[address] 07/27/25 14:51 IMPRESSION: NO ACUTE INTRACRANIAL ABNORMALITY. MINIMAL CHRONIC SMALL VESSEL CHANGES Impression dictated by: Brenden Castro M.D. 07/27/2025 3:46 PM Dictation Location: [facility] Electronically authenticated by: [id number] Y Date: 07/27/2025 15:46 ECG Data Attestation: I personally reviewed and interpreted this ECG as follows: (EKG on my interpretation shows normal sinus rhythm with rate of 63 and no acute change) Discharge Plan Discharge Chief Complaint: Fall Clinical Impression: C1 cervical fracture, C2 cervical fracture Patient Disposition: Home, Self-Care Time of Disposition Decision: 17:18 Condition: Good Mode of Transportation: Private Vehicle Prescriptions / Home Meds: No Action cyanocobalamin (vitamin B-12) 1,000 mcg tablet 1,000 mcg PO QAM Rx Instructions: PER RETAIL FILL HX - LAST FILLED 01/22/23 #90 FOR A 90 DAY SUPPLY escitalopram oxalate 5 mg tablet 5 mg PO QDAY ferrous sulfate [FeroSul] 325 mg (65 mg iron) tablet 325 mg PO QDAY metoprolol tartrate 25 mg tablet 25 mg PO Q12H simvastatin 20 mg tablet 20 mg PO QPM Rx Instructions: PER RETAIL FILL HX - LAST FILLED 02/16/23 #90 FOR A 90 DAY SUPPLY calcium carbonate [Calcium 600] 600 mg calcium (1,500 mg) tablet 600 mg PO DAILY amlodipine 5 mg Tablet 5 mg PO QDAY Qty: 30 0RF lisinopril 10 mg Tablet 20 mg PO QDAY Qty: 60 0RF cefuroxime axetil 500 mg tablet 500 mg PO BID Qty: 10 0RF Print Language: Faroese Instructions: Cervical Fracture (ED) Additional Instructions: The neurosurgeons office at [facility] will contact you on Wednesday to make an appointment for follow-up as an outpatient. Referrals: FELICIANO MUSTAFA [Primary Care Provider, Family Practice] - 1 week
--- NOTE | 2025-07-27 15:03 | PC.NURSE ---
C Collar placed upon arrival and pt placed in ER bed using C spine precautions
[2025-07-27 15:28] LABS: Hematocrit 44.1 % (36.0-48.0); Hemoglobin 13.9 g/dL (12.0-16.0); Immature Granulocytes Abs Auto 0.05 10^3/uL (0.00-0.03); Immature Granulocytes Pct Auto 0.4 % (0.0-0.5); Lymphocytes Absolute Auto 2.6 10^3/uL (1.2-3.8); Mean Corpuscular HGB Conc 31.5 g/dL (29.9-35.2); Mean Corpuscular Hemoglobin 30.8 pg (26.7-34.0); Mean Corpuscular Volume 97.6 fL (81.0-99.0); Platelet Count 263 10^3/uL (150-450); Red Blood Count 4.52 10^6/uL (4.20-5.40); White Blood Count 12.7 10^3/uL (4.0-11.0)
[2025-07-27 15:37] LABS: Anion Gap 8.8; Blood Urea Nitrogen 21.0 mg/dL (7.0-18.0); Calcium 9.4 mg/dL (8.5-10.1); Carbon Dioxide 36.2 mmol/L (21.0-32.0); Chloride 101 mmol/L (98-107); Estimated GFR (African America 55 (>=60 mL/min/1.73m^2); Estimated GFR (Non-African Ame 45 (>=60 mL/min/1.73m^2); Glucose 123 mg/dL (74-106); Potassium 4.0 mmol/L (3.5-5.1); Sodium 142 mmol/L (136-145)
== END 2025-07-27 17:41 | disposition home or self-care (01) ==
PROVIDERS: Emergency Provider Emergency Medicine; PCP Family Medicine
DX: S12.001A Unspecified nondisplaced fracture of first cervical vertebra, initial encounter for closed fracture (principal); S12.101A Unspecified nondisplaced fracture of second cervical vertebra, initial encounter for closed fracture; W19.XXXA Unspecified fall, initial encounter
CPT/HCPCS: 36415; 70450; 72125; 76376; 80048; 85025; 93005; 99284; 99285

== ENCOUNTER 2025-07-28 13:42 | Emergency (ER) | payer MEDICARE, SELFPAY ==
[2025-07-28 13:45] VITALS: BP 142/85; PULSE 68; TEMP 36.6; O2SAT 94; BMI 26.6
--- NOTE | 2025-07-28 13:50 | XR_ITS ---
The [address] [address] Patient Name: SRIRAM LEBLANC MRN: [id number] date: 1935 Sex: F Assigned Patient Location: ER Current Patient Location: ER Accession/Order Number: [id number] Exam Date: 07/28/2025 14:00 Report Date: 07/28/2025 14:40 At the request of: BRYANT PEREA MD Procedure: XR chest 1V PA CHEST: CLINICAL HISTORY: Fall COMPARISON: None Mildly enlarged cardiomediastinal silhouette. Lungs clear. No effusion or pneumothorax. XR/XR chest 1V IMPRESSION: NEGATIVE ACUTE PLEURAL-PARENCHYMAL DISEASE. Impression dictated by: Brenden Castro M.D. 07/28/2025 2:40 PM Dictation Location: [place] [address] Electronically authenticated by: [id number] Y Date: 07/28/2025 14:40
--- NOTE | 2025-07-28 13:50 | CT_ITS ---
The [address] [address] Patient Name: SRIRAM LEBLANC MRN: [id number] date: 1935 Sex: F Assigned Patient Location: ER Current Patient Location: ER Accession/Order Number: [id number] Exam Date: 07/28/2025 14:00 Report Date: 07/28/2025 14:39 At the request of: BRYANT PEREA MD Procedure: CT cervical spine wo con CT CERVICAL SPINE WITHOUT CONTRAST WITH 3D RECONSTRUCTIONS: CLINICAL HISTORY: Fall today, has known C1 and C2 fractures COMPARISON: CT cervical spine 07/27/2025 TECHNIQUE: Spiral axial unenhanced images were obtained through the cervical spine. Sagittal, coronal and 3D volume-rendered reconstructions were also reviewed. This CT exam was performed using one or more following dose reduction techniques: Automated exposure control, adjustment of the mA and/or kV according to patient size, or use of iterative reconstruction technique. FINDINGS: Nondisplaced fractures involving the C1 vertebral body of both lateral masses and involving the anterior arch. Previously noted fracture base of the dens, type II 2 odontoid fracture demonstrates new angulation apex directed anteriorly.. Prevertebral soft tissue swelling. No additional fracture or malalignment identified. Moderate severe disc space narrowing and osteophytosis C4-T1. Multilevel [id number]-lc-[id number] facet arthropathy. There are vascular calcifications. Minimal left apical emphysematous changes. CT/CT cervical spine wo con IMPRESSION: Redemonstration of the C1 and C2 fractures. New angulation of the dens fracture identified Impression dictated by: Brenden Castro M.D. 07/28/2025 2:39 PM Dictation Location: [place] [address] Electronically authenticated by: [id number] Y Date: 07/28/2025 14:39
--- NOTE | 2025-07-28 13:50 | ECG_ITS ---
The [facility] Test Date: 2025-07-28 Pat Name: SRIRAM LEBLANC Department: Room: - Gender: Female Therapeutic Strategy Lead: : 1935 Requested By: 1030 Order Number: [id number] Reading MD: JOHNATHAN TORRES M.D. Measurements Intervals Tony Rate: 65 P: 50 CT: 192 QRS: 48 QRSD: 76 T: 42 QT: 424 QTc: 435 Interpretive Statements 1100 Sinus rhythm 1102 Sinus arrhythmia 8102 Low QRS voltage in chest leads 9120 atypical ECG Compared to ECG 07/27/2025 15:17:35 Low QRS voltage now present Electronically Signed On 07-28-2025 15:09:09 EST by JOHNATHAN TORRES M.D.
--- NOTE | 2025-07-28 13:50 | CT_ITS ---
The [address] [address] Patient Name: SRIRAM LEBLANC MRN: [id number] date: 1935 Sex: F Assigned Patient Location: ER Current Patient Location: ER Accession/Order Number: [id number] Exam Date: 07/28/2025 14:00 Report Date: 07/28/2025 14:34 At the request of: BRYANT PEREA MD Procedure: CT head/brain wo con CT BRAIN WITHOUT CONTRAST: CLINICAL HISTORY: Fell today COMPARISON: 07/27/2025 TECHNIQUE: Contiguous axial unenhanced images were obtained through the brain. This CT exam was performed using one or more following dose reduction techniques: Automated exposure control, adjustment of the mA and/or kV according to patient size, or use of iterative reconstruction technique. FINDINGS: There is no evidence of midline shift, intra or extra-axial fluid collection, hemorrhage or CT evidence of acute large vascular lesion stroke. Stable chronic microvascular disease and Central involutional change. Visualized intraorbital contents appear unremarkable. Visualized paranasal sinuses are clear. The surrounding soft tissues are normal. CT/CT head/brain wo con IMPRESSION: NO ACUTE INTRACRANIAL ABNORMALITY. Impression dictated by: Brenden Castro M.D. 07/28/2025 2:34 PM Dictation Location: [place] [address] Electronically authenticated by: [id number] Y Date: 07/28/2025 14:34
--- NOTE | 2025-07-28 13:59 | ED.GENADUL1 ---
Documented by User: Juaquin Benavidez MD 07/28/25 16:32 HPI HPI - General Adult General Chief complaint: Fall Stated complaint: FALL Time Seen by Provider: 07/28/25 13:47 Source: patient and other Source information: EMS Mode of arrival: ambulance Limitations: physical limitation Limitations comment: weakness History of Present Illness HPI narrative: 89-year-old female presented to the emergency department for a fall. She was getting out of her lift chair and she fell and hit the right side of her head. She sustained a laceration on her right forearm as well. She was seen here yesterday after a fall 3 days previous. She was diagnosed with C1 and C2 fractures but they were found to be old by the neurosurgeon at [facility] and she was discharged home on his recommendation. No LOC today. No injury to her extremities or her left arm. Related Data Home Medications ?Medication ?Instructions ?Recorded ?Confirmed calcium carbonate (Calcium 600) 600 mg PO DAILY 03/16/23 07/28/25 cyanocobalamin (vitamin B-12) 1,000 mcg PO QAM 03/16/23 07/28/25 1,000 mcg tablet escitalopram oxalate 5 mg tablet 5 mg PO QDAY 03/16/23 07/28/25 ferrous sulfate 325 mg (65 mg 325 mg PO QDAY 03/16/23 07/28/25 iron) tablet (FeroSul) metoprolol tartrate 25 mg tablet 25 mg PO Q12H 03/16/23 07/28/25 simvastatin 20 mg tablet 20 mg PO QPM 03/16/23 07/28/25 amlodipine 5 mg tablet 5 mg PO DAILY PRN HTN 07/28/25 07/28/25 lisinopril 20 mg tablet 20 mg PO DAILY 07/28/25 07/28/25 Allergies Allergy/AdvReac Type Severity Reaction Status Date / Time Sulfa (Sulfonamide Allergy Intermediate Confusion Verified 03/16/23 06:45 Antibiotics) Opioid HPI Opioid Management Most Recent Opioid Data: Last Pain Intensity 0 03/18/23, 09:30 Ur Phencyclidine Scrn, (NEGATIVE) Negative 03/16/23, 06:05 Review of Systems ROS Narrative A ten point review of systems is negative except as noted above. PFSH PFSH Medical History (Updated 07/28/25 @ 15:34 by Juaquin Benavidez MD) Pneumonia ?J18.9 - Pneumonia, unspecified organism (ICD-10) Dementia ?F03.90 - Unspecified dementia, unspecified severity, without behavioral disturbance, psychotic disturbance, mood disturbance, and anxiety (ICD-10) UTI (urinary tract infection) ?N39.0 - Urinary tract infection, site not specified (ICD-10) Acute and chronic respiratory failure with hypoxia ?J96.21 - Acute and chronic respiratory failure with hypoxia (ICD-10) Acute on chronic diastolic (congestive) heart failure ?I50.33 - Acute on chronic diastolic (congestive) heart failure (ICD-10) COPD (chronic obstructive pulmonary disease) ?J44.9 - Chronic obstructive pulmonary disease, unspecified (ICD-10) Closed hip fracture requiring operative repair ?S72.009A - Fracture of unspecified part of neck of unspecified femur, initial encounter for closed fracture (ICD-10) Hip fracture ?S72.009A - Fracture of unspecified part of neck of unspecified femur, initial encounter for closed fracture (ICD-10) Anxiety ?F41.9 - Anxiety disorder, unspecified (ICD-10) Depression ?F32.A - Depression, unspecified (ICD-10) Hyperlipidemia ?E78.5 - Hyperlipidemia, unspecified (ICD-10) Hypertension ?I10 - Essential (primary) hypertension (ICD-10) Surgical History History of hip surgery ?Z98.890 - Other specified postprocedural states (ICD-10) Family History Mother Family history of cancer Sister Family history of cancer Family history of hypertension Brother Family history of myocardial infarction Father Family history of cancer Social History Within the past year, how often did you have a drink containing alcohol: never Score interpretation: A score less than 3 is consistent with normal alcohol consumption. Smoking status: Former smoker Non-prescribed substance use: denies use Previous occupational history: Retired Highest level of school completed/degree received: 10th grade Little interest or pleasure in doing things: not at all Feeling down, depressed, or hopeless: not at all Feel stressed/tense/nervous/anxious/difficulty sleeping: to some extent Life stressors: other Life stressor details: recent hip fracture Do you think of yourself as: straight/heterosexual Gender Identity: female Exam Narrative Exam Narrative: Nurses note and vital signs reviewed General:The patient appears in no acute distress. C-collar is in place. Skin:Warm, dry, no pallor noted.There is no rash noted. Head:Normocephalic, bruising present on the right side of her face. Eye: Normal conjunctiva, no drainage Ears, Nose, Mouth, and Throat: oral mucosa is moist. Nares patent. Cardiovascular:Regular Rate and Rhythm Respiratory:Patient is in no distress, no accessory muscle use, lungs are clear to auscultation, no wheezing, rales or rhonchi GI: Soft and nontender Musculoskeletal: No palpable tenderness to her hips, knees, or ankles. No palpable tenderness to her left arm. She has an irregular laceration on her right forearm. Fingers have full range of motion. Neurological:A&O, normal speech Psychiatric:Cooperative Constitutional Vital Signs, click to edit/add: Last Vital Signs Temp 97.8 F 07/28/25 13:45 Pulse 68 07/28/25 13:45 Resp 16 07/28/25 13:45 BP 142/85 H 07/28/25 13:45 Pulse Ox 94 L 07/28/25 13:45 O2 Del Method Nasal Cannula 07/28/25 13:45 O2 Flow Rate 3 07/28/25 13:45 Course Vital Signs Vital signs: Vital Signs Temperature 97.8 F 07/28/25 13:45 Pulse Rate 68 07/28/25 13:45 Respiratory Rate 16 07/28/25 13:45 Blood Pressure 142/85 H 07/28/25 13:45 Pulse Oximetry 94 L 07/28/25 13:45 Oxygen Delivery Method Nasal Cannula 07/28/25 13:45 Oxygen Delivery Flow Rate 3 07/28/25 13:45 Temperature 97.8 F 07/28/25 13:45 Pulse Rate 68 07/28/25 13:45 Respiratory Rate 16 07/28/25 13:45 Blood Pressure 142/85 H 07/28/25 13:45 Pulse Oximetry 94 L 07/28/25 13:45 Oxygen Delivery Method Nasal Cannula 07/28/25 13:45 Oxygen Delivery Flow Rate 3 12/06/25 13:45 Medical Decision Making MDM Narrative Medical decision making narrative: The patient has unchanged CT of the brain. CT scan today shows slight angulation anteriorly of the dens compared to yesterday. Case discussed with Dr. Castano at the emergency department at [facility] and he accepts the patient. The patient is agreeable and stable for transfer. Findings are discussed thoroughly with the patient and her family. The right arm laceration has also been closed and tetanus is updated. She was also noted to have a UTI and was given IV Rocephin. Differential Diagnosis Differential Diagnosis: Intracranial hemorrhage, C-spine fracture, contusion, laceration Lab Data Lab results reviewed: Yes I reviewed the patient's lab results Labs: Lab Results 07/28/25 07/28/25 Range/Units 14:24 15:05 WBC 10.8 (4.0-11.0) 10^3/uL RBC 4.42 (4.20-5.40) 10^6/uL Hgb 13.3 (12.0-16.0) g/dL Hct 42.8 (36.0-48.0) % MCV 96.8 (81.0-99.0) fL MCH 30.1 (26.7-34.0) pg MCHC 31.1 (29.9-35.2) g/dL RDW 12.9 (11.0-15.0) % Plt Count 256 (150-450) 10^3/uL MPV 9.9 (9.5-13.5) fL Neut % (Auto) 65.9 (43.0-75.0) % Lymph % (Auto) 22.3 (20.5-60.0) % [place] % (Auto) 10.6 (1.7-12.0) % Eos % (Auto) 0.4 L (0.9-7.0) % Baso % (Auto) 0.3 (0.2-2.0) % Neut # (Auto) 7.2 H (1.4-6.5) 10^3/uL Lymph # (Auto) 2.4 (1.2-3.8) 10^3/uL [place] # (Auto) 1.2 H (0.3-0.8) 10^3/uL Eos # (Auto) 0.0 (0.0-0.7) 10^3/uL Baso # (Auto) 0.0 (0.0-0.1) 10^3/uL Abs Immat Gran (auto) 0.05 H (0.00-0.03) 10^3/uL Imm/Tot Granulo (auto) 0.5 (0.0-0.5) % Sodium 143 (136-145) mmol/L Potassium 4.0 (3.5-5.1) mmol/L Chloride 102 (98-107) mmol/L Carbon Dioxide 36.1 H (21.0-32.0) mmol/L Anion Gap 8.9 BUN 26.0 H (7.0-18.0) mg/dL Creatinine 0.91 (0.55-1.02) mg/dL Est GFR ( Amer) >60 (>=60 mL/min/1.73m^2) Est GFR (Non-Af Amer) 58 L (>=60 mL/min/1.73m^2) BUN/Creatinine Ratio 28.6 Glucose 102 (74-106) mg/dL Calcium 9.0 (8.5-10.1) mg/dL Urine Color Yellow (YELLOW) Urine Clarity Slightly cloudy A (CLEAR) Urine pH 6.0 (5.0-9.0) Ur Specific [place] 1.020 (1.005-1.025) Urine Protein 30 A (NEG/TRACE) mg/dL Urine Glucose (UA) Negative (NEGATIVE) mg/dL Urine Ketones 15 A (NEGATIVE) mg/dL Urine Occult Blood Small A (NEGATIVE) Urine Nitrite Negative (NEGATIVE) Urine Bilirubin Small A (NEGATIVE) Urine Urobilinogen 1.0 (0.2-1.0) EU/dL Ur Leukocyte Esterase Moderate A (NEGATIVE) Urine RBC 5-10 A (0-2) #/HPF Urine WBC 50-75 A (NONE SEEN) #/HPF Ur Squamous Epith Cells Few A (NONE/RARE) #/LPF Urine Crystals None seen (None Seen) #/HPF Urine Bacteria Large A (NONE SEEN) #/HPF Urine Casts None seen (NONE SEEN) #/LPF Urine Mucus None seen (NONE SEEN) Ur Culture Indicated? Yes-[facility] Imaging Data CT scan - head: Radiologist's impression: ITS Impressions Cervical Spine CT 07/28/25 13:50 IMPRESSION: Redemonstration of the C1 and C2 fractures. New angulation of the dens fracture identified Impression dictated by: Brenden Castro M.D. 07/28/2025 2:39 PM Dictation Location: [facility] Electronically authenticated by: [id number] Y Date: 07/28/2025 14:39 Chest X-Ray 07/28/25 13:50 IMPRESSION: NEGATIVE ACUTE PLEURAL-PARENCHYMAL DISEASE. Impression dictated by: Brenden Castro M.D. 07/28/2025 2:40 PM Dictation Location: [facility] Electronically authenticated by: [id number] Y Date: 07/28/2025 14:[address] 07/28/25 13:50 IMPRESSION: NO ACUTE INTRACRANIAL ABNORMALITY. Impression dictated by: Brenden Castro M.D. 07/28/2025 2:34 PM Dictation Location: [id number] Electronically authenticated by: [id number] Y Date: 07/28/2025 14:34 ECG Data Attestation: I personally reviewed and interpreted this ECG as follows: (EKG on my interpretation shows normal sinus rhythm with a rate of 65 and no acute change.) Discharge Plan Discharge Chief Complaint: Fall Clinical Impression: Urinary tract infection, C1 cervical fracture, C2 cervical fracture, Generalized weakness Patient Disposition: [facility] Time of Disposition Decision: 15:19 Discharge Location: [facility] Condition: Fair Mode of Transportation: EMS Documented by User: OCTAVIO Hay 07/28/25 15:52 HPI HPI - General Adult General Chief complaint: Fall Stated complaint: FALL Time Seen by Provider: 07/28/25 13:47 Related Data Home Medications ?Medication ?Instructions ?Recorded ?Confirmed calcium carbonate (Calcium 600) 600 mg PO DAILY 03/16/23 07/28/25 cyanocobalamin (vitamin B-12) 1,000 mcg PO QAM 03/16/23 07/28/25 1,000 mcg tablet escitalopram oxalate 5 mg tablet 5 mg PO QDAY 03/16/23 07/28/25 ferrous sulfate 325 mg (65 mg 325 mg PO QDAY 03/16/23 07/28/25 iron) tablet (FeroSul) metoprolol tartrate 25 mg tablet 25 mg PO Q12H 03/16/23 07/28/25 simvastatin 20 mg tablet 20 mg PO QPM 03/16/23 07/28/25 amlodipine 5 mg tablet 5 mg PO DAILY PRN HTN 07/28/25 07/28/25 lisinopril 20 mg tablet 20 mg PO DAILY 07/28/25 07/28/25 Allergies Allergy/AdvReac Type Severity Reaction Status Date / Time Sulfa (Sulfonamide Allergy Intermediate Confusion Verified 03/16/23 06:45 Antibiotics) Opioid HPI Opioid Management Most Recent Opioid Data: Last Pain Intensity 0 03/18/23, 09:30 Ur Phencyclidine Scrn, (NEGATIVE) Negative 03/16/23, 06:05 [facility] Medical History (Updated 07/28/25 @ 15:34 by Juaquin Benavidez MD) Pneumonia ?J18.9 - Pneumonia, unspecified organism (ICD-10) Dementia ?F03.90 - Unspecified dementia, unspecified severity, without behavioral disturbance, psychotic disturbance, mood disturbance, and anxiety (ICD-10) UTI (urinary tract infection) ?N39.0 - Urinary tract infection, site not specified (ICD-10) Acute and chronic respiratory failure with hypoxia ?J96.21 - Acute and chronic respiratory failure with hypoxia (ICD-10) Acute on chronic diastolic (congestive) heart failure ?I50.33 - Acute on chronic diastolic (congestive) heart failure (ICD-10) COPD (chronic obstructive pulmonary disease) ?J44.9 - Chronic obstructive pulmonary disease, unspecified (ICD-10) Closed hip fracture requiring operative repair ?S72.009A - Fracture of unspecified part of neck of unspecified femur, initial encounter for closed fracture (ICD-10) Hip fracture ?S72.009A - Fracture of unspecified part of neck of unspecified femur, initial encounter for closed fracture (ICD-10) Anxiety ?F41.9 - Anxiety disorder, unspecified (ICD-10) Depression ?F32.A - Depression, unspecified (ICD-10) Hyperlipidemia ?E78.5 - Hyperlipidemia, unspecified (ICD-10) Hypertension ?I10 - Essential (primary) hypertension (ICD-10) Surgical History History of hip surgery ?Z98.890 - Other specified postprocedural states (ICD-10) Family History Mother Family history of cancer Sister Family history of cancer Family history of hypertension Brother Family history of myocardial infarction Father Family history of cancer Social History Within the past year, how often did you have a drink containing alcohol: never Score interpretation: A score less than 3 is consistent with normal alcohol consumption. Smoking status: Former smoker Non-prescribed substance use: denies use Previous occupational history: Retired Highest level of school completed/degree received: 10th grade Little interest or pleasure in doing things: not at all Feeling down, depressed, or hopeless: not at all Feel stressed/tense/nervous/anxious/difficulty sleeping: to some extent Life stressors: other Life stressor details: recent hip fracture Do you think of yourself as: straight/heterosexual Gender Identity: female Exam Constitutional Vital Signs, click to edit/add: Last Vital Signs Temp 97.8 F 07/28/25 13:45 Pulse 68 07/28/25 13:45 Resp 16 07/28/25 13:45 BP 142/85 H 07/28/25 13:45 Pulse Ox 94 L 07/28/25 13:45 O2 Del Method Nasal Cannula 07/28/25 13:45 O2 Flow Rate 3 07/28/25 13:45 Course Vital Signs Vital signs: Vital Signs Temperature 97.8 F 07/28/25 13:45 Pulse Rate 68 07/28/25 13:45 Respiratory Rate 16 07/28/25 13:45 Blood Pressure 142/85 H 07/28/25 13:45 Pulse Oximetry 94 L 07/28/25 13:45 Oxygen Delivery Method Nasal Cannula 07/28/25 13:45 Oxygen Delivery Flow Rate 3 07/28/25 13:45 Temperature 97.8 F 07/28/25 13:45 Pulse Rate 68 07/28/25 13:45 Respiratory Rate 16 07/28/25 13:45 Blood Pressure 142/85 H 07/28/25 13:45 Pulse Oximetry 94 L 07/28/25 13:45 Oxygen Delivery Method Nasal Cannula 07/28/25 13:45 Oxygen Delivery Flow Rate 3 07/28/25 13:45 Medical Decision Making Lab Data Labs: Lab Results 07/28/25 07/28/25 Range/Units 14:24 15:05 WBC 10.8 (4.0-11.0) 10^3/uL RBC 4.42 (4.20-5.40) 10^6/uL Hgb 13.3 (12.0-16.0) g/dL Hct 42.8 (36.0-48.0) % MCV 96.8 (81.0-99.0) fL MCH 30.1 (26.7-34.0) pg MCHC 31.1 (29.9-35.2) g/dL RDW 12.9 (11.0-15.0) % Plt Count 256 (150-450) 10^3/uL MPV 9.9 (9.5-13.5) fL Neut % (Auto) 65.9 (43.0-75.0) % Lymph % (Auto) 22.3 (20.5-60.0) % [place] % (Auto) 10.6 (1.7-12.0) % Eos % (Auto) 0.4 L (0.9-7.0) % Baso % (Auto) 0.3 (0.2-2.0) % Neut # (Auto) 7.2 H (1.4-6.5) 10^3/uL Lymph # (Auto) 2.4 (1.2-3.8) 10^3/uL [place] # (Auto) 1.2 H (0.3-0.8) 10^3/uL Eos # (Auto) 0.0 (0.0-0.7) 10^3/uL Baso # (Auto) 0.0 (0.0-0.1) 10^3/uL Abs Immat Gran (auto) 0.05 H (0.00-0.03) 10^3/uL Imm/Tot Granulo (auto) 0.5 (0.0-0.5) % Sodium 143 (136-145) mmol/L Potassium 4.0 (3.5-5.1) mmol/L Chloride 102 (98-107) mmol/L Carbon Dioxide 36.1 H (21.0-32.0) mmol/L Anion Gap 8.9 BUN 26.0 H (7.0-18.0) mg/dL Creatinine 0.91 (0.55-1.02) mg/dL Est GFR ( Amer) >60 (>=60 mL/min/1.73m^2) Est GFR (Non-Af Amer) 58 L (>=60 mL/min/1.73m^2) BUN/Creatinine Ratio 28.6 Glucose 102 (74-106) mg/dL Calcium 9.0 (8.5-10.1) mg/dL Urine Color Yellow (YELLOW) Urine Clarity Slightly cloudy A (CLEAR) Urine pH 6.0 (5.0-9.0) Ur Specific [place] 1.020 (1.005-1.025) Urine Protein 30 A (NEG/TRACE) mg/dL Urine Glucose (UA) Negative (NEGATIVE) mg/dL Urine Ketones 15 A (NEGATIVE) mg/dL Urine Occult Blood Small A (NEGATIVE) Urine Nitrite Negative (NEGATIVE) Urine Bilirubin Small A (NEGATIVE) Urine Urobilinogen 1.0 (0.2-1.0) EU/dL Ur Leukocyte Esterase Moderate A (NEGATIVE) Urine RBC 5-10 A (0-2) #/HPF Urine WBC 50-75 A (NONE SEEN) #/HPF Ur Squamous Epith Cells Few A (NONE/RARE) #/LPF Urine Crystals None seen (None Seen) #/HPF Urine Bacteria Large A (NONE SEEN) #/HPF Urine Casts None seen (NONE SEEN) #/LPF Urine Mucus None seen (NONE SEEN) Ur Culture Indicated? Yes-[facility] Imaging Data CT scan - head: Radiologist's impression: ITS Impressions Cervical Spine CT 07/28/25 13:50 IMPRESSION: Redemonstration of the C1 and C2 fractures. New angulation of the dens fracture identified Impression dictated by: Brenden Castro M.D. 07/28/2025 2:39 PM Dictation Location: [place] [address] Electronically authenticated by: [id number] Y Date: 07/28/2025 14:39 Chest X-Ray 07/28/25 13:50 IMPRESSION: NEGATIVE ACUTE PLEURAL-PARENCHYMAL DISEASE. Impression dictated by: Brenden Castro M.D. 07/28/2025 2:40 PM Dictation Location: [facility] Electronically authenticated by: [id number] Y Date: 07/28/2025 14:[address] 07/28/25 13:50 IMPRESSION: NO ACUTE INTRACRANIAL ABNORMALITY. Impression dictated by: Brenden Castro M.D. 07/28/2025 2:34 PM Dictation Location: [facility] Electronically authenticated by: [id number] Y Date: 07/28/2025 14:34 Discharge Plan Discharge Chief Complaint: Fall Clinical Impression: Urinary tract infection, C1 cervical fracture, C2 cervical fracture, Generalized weakness Patient Disposition: [facility] Time of Disposition Decision: 15:19 Discharge Location: [facility] Condition: Fair Mode of Transportation: EMS Procedures ED Laceration Laceration right medial proximal forearm: Additional comments: Laceration repair: Done under sterile conditions. irregular rectangle laceration with skin tear. The use of Betadine was used to prep and clean the area. Local injection with lidocaine 1% was used, approximately 5 mL. The wound was irrigated copiously with normal saline. The wound was explored there was no evidence of foreign material. The subctaneous fat was approximated with 5-0 vicryl with 2 simple interuppted sutured. The laceration was approximated with 5-0 nylon. 10 simple interrupted sutures were placed. Patient tolerated the procedure well. The patient was neurovascularly intact post. the patient had bacitracin applied to the laceration and a dry sterile dressing was place. The patient will need to follow-up in the next 10-14 days for removal. No residual bleeding. Suture repair by Jasvir FARLEY
[2025-07-28 14:34] LABS: Hematocrit 42.8 % (36.0-48.0); Hemoglobin 13.3 g/dL (12.0-16.0); Immature Granulocytes Abs Auto 0.05 10^3/uL (0.00-0.03); Immature Granulocytes Pct Auto 0.5 % (0.0-0.5); Lymphocytes Absolute Auto 2.4 10^3/uL (1.2-3.8); Mean Corpuscular HGB Conc 31.1 g/dL (29.9-35.2); Mean Corpuscular Hemoglobin 30.1 pg (26.7-34.0); Mean Corpuscular Volume 96.8 fL (81.0-99.0); Platelet Count 256 10^3/uL (150-450); Red Blood Count 4.42 10^6/uL (4.20-5.40); White Blood Count 10.8 10^3/uL (4.0-11.0)
[2025-07-28 14:42] LABS: Anion Gap 8.9; Blood Urea Nitrogen 26.0 mg/dL (7.0-18.0); Calcium 9.0 mg/dL (8.5-10.1); Carbon Dioxide 36.1 mmol/L (21.0-32.0); Chloride 102 mmol/L (98-107); Estimated GFR (African America >60 (>=60 mL/min/1.73m^2); Estimated GFR (Non-African Ame 58 (>=60 mL/min/1.73m^2); Glucose 102 mg/dL (74-106); Potassium 4.0 mmol/L (3.5-5.1); Sodium 143 mmol/L (136-145)
[2025-07-28] MEDS: DIPHTH,PERTUSS(ACELL),TET VAC 0.5 ML SYRINGE IM (15:04)
[2025-07-28 15:24] LABS: Glucose Urine UA NEGATIVE (NEGATIVE)
[2025-07-28 15:30] LABS: Cast Seen? NONE SEEN #/LPF (NONE SEEN); Crystals Seen? None Seen #/HPF (None Seen)
[2025-07-28 15:31] LABS: Urine Culture Indicated YES-FRMC
--- NOTE | 2025-07-28 15:31 | PC.NURSE ---
1520 - PA in room at this time suturing pt's arm
[2025-07-28] MEDS: BACITRACIN 0.9 GM PACKET 1 PACKET TOPICAL (16:12)
[2025-07-28] MEDS: LIDOCAINE HCL 1% 100 MG/10 ML MDV INJ (16:12)
--- NOTE | 2025-07-28 16:28 | PC.NURSE ---
IV infliltrated at this time. small lump at insertion site. removed immediately. placed a new one -- see IV documentation at this time
[2025-07-28] MEDS: LORAZEPAM 2 MG/ML VIAL 0.5 MG IV (17:11)
--- NOTE | 2025-07-28 17:57 | PC.NURSE ---
PHONE REPORT GIVEN TO RAGHU CONWAY, IN [facility] ED
== END 2025-07-28 17:20 | disposition short-term general hospital (02) ==
PROVIDERS: Emergency Provider Emergency Medicine; PCP Family Medicine
DX: S12.000A Unspecified displaced fracture of first cervical vertebra, initial encounter for closed fracture (principal); S12.100A Unspecified displaced fracture of second cervical vertebra, initial encounter for closed fracture; S51.811A Laceration without foreign body of right forearm, initial encounter; N39.0 Urinary tract infection, site not specified; R53.1 Weakness; Z87.891 Personal history of nicotine dependence; W07.XXXA Fall from chair, initial encounter; Z91.81 History of falling
CPT/HCPCS: 12001; 36415; 51702; 70450; 71045; 72125; 76376; 80048; 81001; 85025; 87086; 87088; 87186; 90471; 90715; 93005; 96365; 96375; 99285; J0696; J2060